=== PATIENT | female | born 1960 | race Caucasian/White ===

== ENCOUNTER 2023-08-10 09:24 | Outpatient (CLI) | payer BC, SELFPAY ==
--- NOTE | ~2023-08-10 | XR_ITS ---
AP and lateral views of the right hip Clinical history: Pain Findings: No acute fracture or dislocation is seen. Osseous alignment is anatomic. Right hip joint sp selam is preserved. Soft tissues are unremarkable. Impression: No significant abnormality is seen. Reviewed, dictated and finalized at location . Impression: No significant abnormality is seen.
== END 2023-08-10 09:25 | disposition home or self-care (01) ==
LOC: CHSIMG 09:35
PROVIDERS: PCP Family Medicine; Visit Provider Family Medicine
DX: M25.551 Pain in right hip (principal)
CPT/HCPCS: 73502

== ENCOUNTER 2023-09-15 13:24 | Outpatient (CLI) | payer BC, SELFPAY ==
--- NOTE | ~2023-09-15 | XR_ITS ---
EXAMINATION: XR lg joint inject/asp w image DATE: 09/15/2023 14:08 INDICATION: Right hip arthritis. TECHNIQUE: A time-out was performed to verify the patient's name, date of , and procedure to b e performed. The procedure including the risks, benefits, and alternatives was discussed with the pat ient. Risks discussed included bleeding and infection. The patient understood the risks and agreed to proceed. The skin overlying the right hip joint was prepped and draped in usual sterile fashion. A nesthetic was administered with 1% lidocaine subcutaneously. A 22 G needle was advanced under fluoro scopic guidance into the joint. Subsequently, injectate consisting of 2 mL 0.5% bupivacaine and 1 m L 80 mg/mL Depo-Medrol was instilled. The needle was removed and the entry site was cleaned and dres sed. There were no immediate complications. Fluoroscopy exposure time was 0.1 minutes. The total num zoë of images was 1. FINDINGS: Real-time fluoroscopy demonstrates the needle in the right hip joint. Patient's pain prior to procedure:3/10. Patient's pain following the procedure: 0/10. IMPRESSION: 1. Fluoroscopy guided right hip joint injection of local anesthetic and steroid with decrease in the patient's presenting pain. Reviewed, dictated and finalized at location A.
== END 2023-09-15 13:25 | disposition home or self-care (01) ==
PROVIDERS: PCP Family Medicine; Visit Provider Orthopaedic Surgery
DX: M16.11 Unilateral primary osteoarthritis, right hip (principal)
CPT/HCPCS: 20610; 77002; J1010

== ENCOUNTER 2023-10-12 08:28 | Outpatient (CLI) | payer BC, SELFPAY ==
[2023-10-12 08:54] LABS: Basophils Absolute Auto 0.04 K/mm3 (0.00-0.10); Basophils Percent Auto 0.6 % (0.0-1.0); Eosinophils Absolute Auto 0.29 K/mm3 (0.02-0.50); Eosinophils Percent Auto 4.6 % (1.0-6.0); Hematocrit 34.6 % (35.0-42.0); Hemoglobin 11.7 g/dL (11.7-13.8); Immature Granulocyte Absolute 0.05 K/mm3 (0.00-0.00); Immature Granulocyte Percent A 0.8 % (0.0-0.0); Lymphocytes Absolute Auto 1.87 K/mm3 (1.10-4.50); Lymphocytes Percent Auto 29.5 % (18.0-42.0); Mean Corpuscular HGB Conc 33.8 g/dL (32-36); Mean Corpuscular Hemoglobin 33.3 pg (27.0-31.0); Mean Corpuscular Volume 98.6 fL (78.0-102.0); Mean Platelet Volume 8.8 fl (9.2-11.8); Monocytes Absolute Auto 0.58 K/mm3 (0.10-0.90); Monocytes Percent Auto 9.2 % (2.0-11.0); Neutrophils Percent Auto 55.3 % (50.0-70.0); Platelet Count Result 307 K/mm3 (150-420); Red Blood Count 3.51 M/mm3 (4.20-5.40); Red Cell Distribution Width 12.5 % (11.6-14.4); White Blood Count 6.3 K/mm3 (4.8-10.8)
[2023-10-12 09:06] LABS: Hemoglobin A1C < 4.4 % (<5.7)
[2023-10-12 09:39] LABS: Alanine Aminotransferase 23 U/L (14-59); Alkaline Phosphatase 47 U/L (46-116); Anion Gap 10 mmol/L (4-12); Aspartate Amino Transferase 17 U/L (15-37); Bilirubin,Total 0.7 mg/dL (0.00-1.00); Blood Urea Nitrogen 14 mg/dL (7-18); Calcium 9.1 mg/dL (8.5-10.1); Carbon Dioxide 29 mmol/L (21-32); Chloride 96 mmol/L (98-108); Cholesterol 272 mg/dL (0-200); Estimated Glomerular Filt Rate > 60; Folic Acid 12.7 ng/mL (8.6->20); Glucose 92 mg/dL (70-99); HDL Direct 113 mg/dL (40-60); LDL Cholesterol Calculated 149 mg/dL (<130); Osmolality Calculated 280 mOsm/kg (285-295); Potassium 4.4 mmol/L (3.5-5.1); Sodium 135 mmol/L (136-145); Thyroid Stimulating Hormone 1.45 uIU/mL (0.36-3.74); Total Protein 7.5 g/dL (6.4-8.2); Triglycerides 49 mg/dL (0-150); Vitamin B12 291 pg/mL (193-986)
== END 2023-10-12 08:29 | disposition home or self-care (01) ==
LOC: CHSLAB 08:33
PROVIDERS: PCP Family Medicine
DX: E66.3 Overweight (principal); E56.9 Vitamin deficiency, unspecified; E34.9 Endocrine disorder, unspecified
CPT/HCPCS: 36415; 80053; 80061; 82607; 82746; 83036; 84443; 85025

== ENCOUNTER 2024-01-05 08:11 | Outpatient (CLI) | payer BC, SELFPAY ==
--- NOTE | ~2024-01-05 | MM_ITS ---
EXAMINATION: MM screening mahad BI w leticia HISTORY: Screening TECHNIQUE: Craniocaudal and mediolateral oblique 3-D tomosynthesis images were obtained and synthetic 2-D images were generated. CAD analysis was submitted and interpreted. COMPARISON: No prior mammogram is available for comparison at this institution. BREAST PARENCHYMAL COMPOSITION: Dense: The breasts are extremely dense, which lowers the sensitivity of mammography. FINDINGS: There is a focal asymmetry medially in the right breast on CC view and centrally in the lef t breast on CC view. There are benign calcifications. There are no suspicious areas of architectural distortion. IMPRESSION: 1. Bilateral breast asymmetries. 2. Additional mammographic views and possible breast ultrasound are recommended. BI-RADS Category 0: Incomplete: Needs additional imaging evaluation. Reviewed, dictated and finalized at location B. IMPRESSION: 1. Bilateral breast asymmetries. 2. Additional mammographic views and possible breast ultrasound are recommended . BI-RADS Category 0: Incomplete: Needs additional imaging evaluation.
== END 2024-01-05 08:12 | disposition home or self-care (01) ==
LOC: CHSIMG 08:12
PROVIDERS: PCP Family Medicine; Visit Provider Family Medicine
DX: Z12.31 Encounter for screening mammogram for malignant neoplasm of breast (principal); R92.8 Other abnormal and inconclusive findings on diagnostic imaging of breast
CPT/HCPCS: 77063; 77067

== ENCOUNTER 2024-01-12 08:37 | Outpatient (CLI) | payer BC, SELFPAY ==
--- NOTE | ~2024-01-12 | MMUS_ITS ---
EXAMINATION: MM diagnostic mahad BI w leticia, US breast BI complete HISTORY: Follow-up breast asymmetries TECHNIQUE: Additional 3-D tomosynthesis images of the breasts were performed and synthetic 2-D images were generated. CAD analysis was submitted and interpreted. High resolution bilateral complete breas t ultrasound was performed. COMPARISON: 01/05/2024 BREAST PARENCHYMAL COMPOSITION: Dense: The breasts are extremely dense, which lowers the sensitivity of mammography. FINDINGS: MAMMOGRAPHIC FINDINGS: There are no suspicious masses, calcifications or architectural distortion with spot compression or m ediolateral views. ULTRASOUND: Complete US of all 4 quadrants of the breast/s and retroareolar region was reviewed. Normal bilateral breast ultrasound without discrete solid or cystic mass. IMPRESSION: 1. No evidence for malignancy in either breast. 2. Routine yearly screening mammogram and regular clinical breast examination are recommended. BI-RADS CATEGORY 1 - NEGATIVE Reviewed, dictated and finalized at location B. IMPRESSION: 1. No evidence for malignancy in either breast. 2. Routine yearly screening mammogram and regular clinical breast examination a re recommended. BI-RADS CATEGORY 1 - NEGATIVE
== END 2024-01-12 08:38 | disposition home or self-care (01) ==
LOC: CHSIMG 08:47
PROVIDERS: PCP Family Medicine; Visit Provider Family Medicine
DX: R92.8 Other abnormal and inconclusive findings on diagnostic imaging of breast (principal)
CPT/HCPCS: 76641; 77062; 77066; G0279

== ENCOUNTER 2024-02-13 07:41 | Outpatient (CLI) | payer BC, SELFPAY ==
[2024-02-13 07:54] LABS: Basophils Absolute Auto 0.04 K/mm3 (0.00-0.10); Basophils Percent Auto 0.7 % (0.0-1.0); Eosinophils Absolute Auto 0.16 K/mm3 (0.02-0.50); Eosinophils Percent Auto 2.8 % (1.0-6.0); Hematocrit 34.3 % (35.0-42.0); Hemoglobin 11.9 g/dL (11.7-13.8); Immature Granulocyte Absolute 0.04 K/mm3 (0.00-0.00); Immature Granulocyte Percent A 0.7 % (0.0-0.0); Lymphocytes Absolute Auto 1.74 K/mm3 (1.10-4.50); Lymphocytes Percent Auto 30.7 % (18.0-42.0); Mean Corpuscular HGB Conc 34.7 g/dL (32-36); Mean Corpuscular Hemoglobin 33.1 pg (27.0-31.0); Mean Corpuscular Volume 95.5 fL (78.0-102.0); Mean Platelet Volume 8.6 fl (9.2-11.8); Monocytes Absolute Auto 0.49 K/mm3 (0.10-0.90); Monocytes Percent Auto 8.7 % (2.0-11.0); Neutrophils Absolute Auto 3.19 K/mm3 (1.70-7.20); Neutrophils Percent Auto 56.4 % (50.0-70.0); Platelet Count Result 309 K/mm3 (150-420); Red Blood Count 3.59 M/mm3 (4.20-5.40); Red Cell Distribution Width 11.7 % (11.6-14.4); White Blood Count 5.7 K/mm3 (4.8-10.8)
[2024-02-13 08:32] LABS: Creatinine Urine 28.56 mg/dL (40-278); MALB Creatinine Ratio 45.5 mg/g (0-30); Microalbumin Urine Random < 13.0 mg/L
[2024-02-13 08:38] LABS: Alanine Aminotransferase 82 U/L (14-59); Albumin Level 4.1 g/dL (3.4-5.0); Alkaline Phosphatase 52 U/L (46-116); Anion Gap 10 mmol/L (4-12); Aspartate Amino Transferase 34 U/L (15-37); Bilirubin,Total 0.7 mg/dL (0.00-1.00); Blood Urea Nitrogen 16 mg/dL (7-18); Calcium 9.5 mg/dL (8.5-10.1); Carbon Dioxide 29 mmol/L (21-32); Chloride 92 mmol/L (98-108); Cholesterol 251 mg/dL (0-200); Estimated Glomerular Filt Rate > 60; Glucose 97 mg/dL (70-99); HDL Direct 101 mg/dL (40-60); LDL Cholesterol Calculated 138 mg/dL (<130); Osmolality Calculated 273 mOsm/kg (285-295); Potassium 4.5 mmol/L (3.5-5.1); Sodium 131 mmol/L (136-145); Thyroid Stimulating Hormone 1.77 uIU/mL (0.36-3.74); Total Protein 7.5 g/dL (6.4-8.2); Triglycerides 62 mg/dL (0-150)
== END 2024-02-13 07:42 | disposition home or self-care (01) ==
LOC: CHSLAB 07:43
PROVIDERS: PCP Family Medicine; Visit Provider Family Medicine
DX: I10 Essential (primary) hypertension (principal)
CPT/HCPCS: 36415; 80053; 80061; 82043; 84443; 85025

== ENCOUNTER 2024-03-20 13:23 | Outpatient (CLI) | payer BC, SELFPAY ==
--- NOTE | ~2024-03-20 | XR_ITS ---
EXAMINATION: XR lg joint inject/aspiration DATE: 03/20/2024 14:00 INDICATION: Right hip arthritis. TECHNIQUE: A time-out was performed to verify the patient's name, date of , and procedure to b e performed. The procedure including the risks, benefits, and alternatives was discussed with the pat ient. Risks discussed included bleeding and infection. The patient understood the risks and agreed to proceed. The skin overlying the right hip joint was prepped and draped in usual sterile fashion. A nesthetic was administered with 1% lidocaine subcutaneously. A 22 G needle was advanced under fluoro scopic guidance into the joint. Subsequently, injectate consisting of 2 mL 0.5% bupivacaine and 1 mL 80 mg/mL Depo-Medrol was instilled. The needle was removed and the entry site was cleaned and dress ed. There were no immediate complications. Fluoroscopy exposure time was 0.0 minutes. The total numb er of images was 1. FINDINGS: Real-time fluoroscopy demonstrates the needle in the right hip joint. Patient's pain prior to procedure:10/15. Patient's pain following the procedure: 05/17. IMPRESSION: 1. Fluoroscopy guided right hip joint injection of local anesthetic and steroid with decrease in the patient's presenting pain. Reviewed, dictated and finalized at location A. MICIST
== END 2024-03-20 13:24 | disposition home or self-care (01) ==
PROVIDERS: PCP Family Medicine; Visit Provider Nurse Practitioner Family
DX: M16.11 Unilateral primary osteoarthritis, right hip (principal)
CPT/HCPCS: 20610; J1010

== ENCOUNTER 2024-08-26 07:56 | Outpatient (CLI) | payer BC, SELFPAY ==
--- OUTSIDE RECORDS SUMMARY | 2024-08-26 08:23 | XMS_ITS | Encounter Summary ---
Author Organization [facility] Address 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
--- OUTSIDE RECORDS SUMMARY | 2024-08-26 08:23 | XMS_ITS | Clinical Summary ---
Author Organization [facility] Address [address] [place] [address] Care Team Providers Care Overedge Sewer Name Role Phone Unavailable Primary Care Provider Unavailabl e Allergies No known active allergies Medications metronidazole (FLAGYL) 500 mg Oral tablet Take 1 Tab by mouth 2 times daily. 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 Gender Identity Not on file Sexual Orientation Not on file Last Filed Vital Signs Vital Sign Reading Time Taken Comments Blood Pressure 114/66 06/24/2009 11:44 AM CORRECTIVE AND MANUAL ARTS THERAPIST Pulse - - Temperature - - Respiratory Rate - - Oxygen Saturation - - Inhaled Oxygen Concentration - - Weight 59 kg (130 lb) 06/24/2009 11:44 AM CORRECTIVE AND MANUAL ARTS THERAPIST Height 157.5 cm (5' 2 ) 06/24/2009 11:44 AM CORRECTIVE AND MANUAL ARTS THERAPIST Body Mass Index 23.78 06/24/2009 11:44 AM CORRECTIVE AND MANUAL ARTS THERAPIST Plan of Treatment Health Maintenance Due Date Last Done Comments DTAP/TDAP/TD VACCINES (1 - Tdap) 1977 PNEUMOCOCCAL VACCINE 50+ YEA RS (1 of 2 - PCV) 1977 COLORECTAL SCREENING 2003 Colorectal Cancer Screening 2003 FIT-DNA Q 3 years 2003 FIT/FOBT Q 1 year 2003 Flex Sig/CT Colonography Q 5 years 2003 ZOSTER VACCINE (1 of 2) 2008 BREAST CANCER SCREENING 05/24/2013 05/24/2012, 06/24 OSTEOPOROSIS SCREENING 2023 INFLUENZA VACCINE (#1) 2023 RSV VACCINE (60+ or ) (1 - 1-dose 75+ series) 2033 Procedures Procedure Name Priority Date/Time Associated Diagnosis Comments MAMMO SCREEN BILAT W OR WO CAD Routine 05/24/2012 from Last 3 Months or Most Recently Relevant to Health Maintenance Results * MAMMO DIGITAL SCREEN BILAT (05/24/2012) Anatomical Region Laterality Modality Breast Bilateral Other us Omari Galindo MD MAMMO ORDERABLES Edited from Last 3 Months or Most Recently Relevant to Health Maintenance Insurance [employer] [facility] ACC[facility] Advance Directives For more information, please contact: [phone] Documents on File Type Date Recorded Patient Branch Specialist Expl anation Advance Directive POA 04/25/2008 Advance Directive Living Will 04/25/2008
--- OUTSIDE RECORDS SUMMARY | 2024-08-26 08:23 | XMS_ITS | Referral Summary ---
Author Organization [facility] Address [address] [facility] [address] [place] [address] Phone Care Team Providers Care Stock Clerk Name Role Phone Martha Suero MD Unavailable Martha Suero MD Unavailable Domingo Calixto MD Primary Care Provide r Encounters Date Type Department Care Team Description 06/03/2024 9:28 AM CHANNEL WORKER - 06/03/2024 11:59 PM CHANNEL WORKER Hospital Encounter [address] [address] Localized osteoporosis without current pathological fracture; Vitamin D deficiency Discharge Disposition: Discharge to home or self care 06/03/2024 9:30 AM CHANNEL WORKER Lab [facility] Outpatient Lab at [address] [phone] Hypertension, essential (Primary Dx); Mixed hyperlipidemia 06/03/2024 9:00 AM CHANNEL WORKER Office Visit [facility] Diabetes and Endocrinology [address] [place] [id number] Vidal Silva MD Localized osteoporosis without current pathological fracture (Primary Dx); Hypertension, essential; Vitamin D deficiency from Last 3 Months Allergies No known active allergies Medications lisinopriL (PRINIVIL,ZESTR IL) 10 mg tablet Take 1 tablet (10 mg total) by mouth daily 90 tablet 3 021 Active Prolia 60 mg/mL syringeIndicati ons:Localized osteoporosis without current pathological fracture Inject 1ml SUBCUTANEOUSLY EVERY 6 MONTHS 1 mL 1 025 Active denosumab (PROLIA) 60 mg/mL syringeIndicati ons:Localized osteoporosis without current pathological fracture Inject 1 mL (60 mg total) under the skin once for 1 dose 1 mL 025 2024 Discontinued Active Problems Problem Noted Date Diagnosed Date Normocytic anemia 09/27/2020 Assessment & Plan (02/09/2021 4:02 PM CDT): Iron studies, vitamin B12 and folate were all unremarkable 09/30/2020. Last colonoscopy was 10/04/2018 unremarkable. Continue to hold supplements. Her complete blood count shows continued improvement of her anemia. I would recommend repeating this again in 6 months. I reviewed warning signs and symptoms of anemia and when to contact the clinic sooner Assessment & Plan (11/02/2020 3:15 PM CDT): Iron studies, vitamin B12 and folate were all unremarkable 09/30/2020. Last colonoscopy was 10/04/2018 unremarkable. Continue to hold supplements. Repeat CBC in 1 month if continues to downtrend recommend Hematology consultation. I reviewed warning signs and symptoms of anemia and when to contact the clinic sooner Palpitations 08/07/2020 Assessment & Plan (08/07/2020 8:31 AM CDT): EKG and labs as ordered. Reviewed warning signs and symptoms of when to seek care. BMI 23.0-23.9, adult 11/27/2019 Assessment & Plan (02/09/2021 4:02 PM CDT): Patient is a healthy normal BMI. Recommended continuing healthy diet and exercise daily. Assessment & Plan (11/27/2019 12:42 PM CDT): Patient is a healthy normal BMI. Recommended continuing healthy diet and exercise daily. Localized osteoporosis witho ut current pathological fracture 03/06/2019 Assessment & Plan (05/11/2023 10:01 AM CHANNEL WORKER): DEXA requested Continue Prolia Ca and vit D intake discussed Weight bearing exercise Assessment & Plan (04/13/2022 9:49 AM CHANNEL WORKER): Continue Prolia Weight bearing exercise Ca and vit D intake discussed and advised Assessment & Plan (03/31/2021 1:56 PM CHANNEL WORKER): Continue with Prolia Will check PTH and vitamin-D levels will advise on continuing the use of vitamin-D supplementation and calcium Also 24 hour urine collection request Weight-bearing exercise has been advised Assessment & Plan (02/09/2021 4:02 PM CDT): On Prolia every 6 months. Continue regular endocrinology follow-up. Last bone density October 2020 Assessment & Plan (09/24/2020 11:09 AM CDT): Importance of daily weight-bearing exercise was discussed Also adequate calcium and vitamin-D intake Will check vitamin-D levels and adjust dose if necessary I have strongly recommend for the patient to continue on Forteo and to finish 2 year, but she said that she would like to stop it. She just does not like to take I have requested a bone density today and based on results, will advise the patient She definitely wants to stop the Forteo, Prolia will be my next recommendation Assessment & Plan (11/27/2019 12:42 PM CDT): On forteo. Continue regular follow up with endocrinology. Assessment & Plan (09/25/2019 12:19 PM CDT): Continue Forteo, to complete to bethel of 2 years Ca and vit D intake discussed Weight bearing exercise Fall precautions Assessment & Plan (03/06/2019 4:31 PM CDT): Main reason for treatment of osteoporosis is to decrease the risk of fractures. Daily adequate intake of calcium ( 1200 mg of elemental calcium , in 2 divided doses ) And vitamin D ( 800-1000 IU of vitamin D3 ) is recommended Daily weight bearing exercise, including walking, some weight lifting and stretching is recommended. Avoid falls, by cleaning any clutter at home, including loose rugs I explained to the patient that due to her relatively young age in the very low T-score, I will order labs to rule out secondary cause of osteoporosis. I would probably probably recommend an anabolic agent e.g. Forteo which will help rebuilding some bone Constipation 09/25/2018 Assessment & Plan (11/27/2019 12:40 PM CDT): Recommend increasing fiber in diet. If continues or worsens please follow up with GI. Assessment & Plan (12/04/2018 2:26 PM CDT): The patient's colonoscopy on 10/04/2018 demonstrated only mild melanosis. I am recommending continued use of Linzess 145 micro g q.a.m.. The side effects of the medication were discussed with the patient. The patient was told that sometimes it may take several weeks to reach a s teady state and know exactly how the medication is going to work. A TSH will be checked. Assessment & Plan (09/25/2018 7:40 AM CDT): -Discussed increasing fiber in diet including eating more fruits and vegetables. -Peaches, pears, prunes, and plums are all great fruits to help with constipation. -Encouraged exercise and getting a full 8 glasses of water per day. -RTC if constipation worsens, does not improve, or patient has increase in abdominal pain. Recommend MiraLax daily for constipation if worsens or fails to improve would consider Linzess. Annual physical exam 09/19/2018 Overview (09/19/2018): Added automatically from request for surgery [id number] Assessment & Plan (02/09/2021 4:01 PM CDT): -Discussed recommendations for exercise at least 30 minutes moderate to vigorous exercise most days of the week. (minimum 150 minutes weekly) -Discussed MyPlate recommendations and increasing fruits and vegetables. -Cancer screening: recommended colon cancer screening- due 2028; cervical cancer screening- last pap 2018, due 2021 per [employer] recommendations; annual mammogram and monthly self breast exam encouraged. -Immunizations: Up-to-date. She will receive her flu vaccine at work. -Continue routine dental and vision care. Assessment & Plan (11/27/2019 12:41 PM CDT): -Discussed recommendations for exercise at least 30 minutes moderate to vigorous exercise most days of the week. (minimum 150 minutes weekly) -Discussed MyPlate recommendations and increasing fruits and vegetables. -Cancer screening: recommended colon cancer screening- due 2028; cervical cancer screening- last pap 2018, due 2021 per [employer] recommendations; annual mammogram and monthly self breast exam encouraged. -Immunizations: recommend Shingrix vaccine, yearly influenza vaccines -Continue routine dental and vision care. -Labs ordered today: Screen for diabetes mellitus: CMP Screen for lipid disorders: Lipid profile Screen for venereal disease:declined Assessment & Plan (12/04/2018 2:26 PM CDT): Screening colonoscopy is recommended for approximately September 2028. Mixed hyperlipidemia 09/06/2018 Overview (09/06/2018): 08/31/2018 ASCVD risk score is 5.4% lifestyle recommendations for 6 month trial repeat in February 2019 if not improved would add statin Assessment & Plan (02/09/2021 4:01 PM CDT): Lipid abnormalities are stable. Lipids will be reassessed in 6 months. Assessment & Plan (08/07/2020 8:31 AM CDT): Lipid abnormalities are going to be assessed today. Nutritional counseling was provided. Lipids will be reassessed in 6 months. Assessment & Plan (11/27/2019 12:40 PM CDT): Lipid abnormalities are going to be assessed today. Nutritional counseling was provided. Lipids will be reassessed in 6 months. Assessment & Plan (03/28/2019 8:13 AM CHANNEL WORKER): Lipid abnormalities are going to be assessed today. Nutritional counseling was provided. Lipids will be reassessed in 6 months. Assessment & Plan (09/25/2018 7:41 AM CDT): Lipid abnormalities are newly identified. Nutritional counseling was provided. Lipids will be reassessed in 6 months. Hypertension, essential 08/31/2018 Assessment & Plan (02/09/2021 4:00 PM CDT): Hypertension is improving with treatment. Continue current treatment regimen. Dietary sodium restriction. Regular aerobic exercise. Continue current medications. Continue lisinopril 10 mg daily Blood pressure will be reassessed at the next regular appointment. Assessment & Plan (11/02/2020 3:14 PM CDT): Hypertension is improving with treatment. Continue current treatment regimen. Dietary sodium restriction. Regular aerobic exercise. Continue current medications. Continue lisinopril 10 mg daily Blood pressure will be reassessed at the next regular appointment. Assessment & Plan (08/07/2020 8:31 AM CDT): Hypertension is improving with treatment. Continue current treatment regimen. Dietary sodium restriction. Regular aerobic exercise. Continue current medications. Continue lisinopril 10 mg daily Blood pressure will be reassessed at the next regular appointment. Assessment & Plan (11/27/2019 12:39 PM CDT): Hypertension is improving with treatment. Continue current treatment regimen. Dietary sodium restriction. Regular aerobic exercise. Continue current medications. Continue lisinopril 10 mg daily Blood pressure will be reassessed at the next regular appointment. Assessment & Plan (03/28/2019 8:13 AM CHANNEL WORKER): Hypertension is improving with treatment. Continue current treatment regimen. Dietary sodium restriction. Regular aerobic exercise. Continue current medications. Continue lisinopril 10 mg daily Blood pressure will be reassessed at the next regular appointment. Assessment & Plan (09/25/2018 7:41 AM CDT): Hypertension is improving with treatment. Continue current treatment regimen. Dietary sodium restriction. Regular aerobic exercise. Continue current medications. Continue lisinopril 10 mg daily Blood pressure will be reassessed at the next regular appointment. Assessment & Plan (08/31/2018 3:49 PM CDT): Hypertension is newly identified. Continue current treatment regimen. Dietary sodium restriction. Regular aerobic exercise. Ambulatory blood pressure monitoring. Recommended dash diet. See patient instruction. Reviewed side effects of lisinopril 10 mg daily Blood pressure will be reassessed in 4 weeks. Immunizations Immunization Administration Dates Next Due Influenza, Unspecified 02/05/2019,02/05/2018 Pfizer SARS-CoV-2 Monovalent Vaccination (12+ Yrs) PURPLE 05/15/2020,04/24/2020 Tdap 03/28/2019 ZOSTER Recombinant 12/04/2019 Social History Tobacco Use Types Packs/Day Years Used Date Smoking Tobacco: Former Cigarettes 0.5 29 1 990 - 12/06/2017 Vaping Smokeless Tobacco: Never Tobacco Cessation:Counseling Given: Not Answered Alcohol Use Standard Drinks/Week Comments Yes 7 (1 standard drink = 0.6 oz pur e alcohol) AUDIT-C Answer Date Recorded Q1: How often do you have a drink containing alcohol? 4 or more times a week 02/09/2021 Q2: How many drinks containi ng alcohol do you have on a typical day when you are drinking? 1 or 2 Q3: How often do you have si x or more drinks on one occasion? 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 Not on file Not on file Last Filed Vital Signs Vital Sign Reading Time Taken Comments Blood Pressure 120/72 06/03/2024 8:48 AM CHANNEL WORKER Pulse 68 06/03/2024 8:48 AM CHANNEL WORKER Temperature 36.9 C (98.4 F) 02/09/2021 10:52 AM CDT Respiratory Rate 15 06/03/2024 8:48 AM CHANNEL WORKER Oxygen Saturation 98% 10/04/2018 9:47 AM CDT Inhaled Oxygen Concentration - - Weight 64 kg (141 lb) 06/03/2024 8:48 AM CHANNEL WORKER Height 157.5 cm (5' 2 ) 06/03/2024 8:48 AM CHANNEL WORKER Body Mass Index 25.79 06/03/2024 8:48 AM CHANNEL WORKER Plan of Treatment Not on file Procedures Procedure Name Priority Date/Time Associated Diagnosis Comments EGFR Routine 06/03/2024 9:28 AM CHANNEL WORKER Localized osteoporosis without current pathological fracture THYROID FUNCTION CASCADE Routine 06/03/2024 9:28 AM CHANNEL WORKER Localized osteoporosis without current pathological fracture VITAMIN D 25 HYDROXY Routine 06/03/2024 9:28 AM CHANNEL WORKER Vitamin D deficiency PTH Routine 06/03/2024 9:28 AM CHANNEL WORKER Localized osteoporosis without current pathological fracture COMPREHENSIVE METABOLIC PANEL Routine 06/03/2024 9:28 AM CHANNEL WORKER Localized osteoporosis without current pathological fracture DEXA AXIAL SKELETON BONE DENSITY 1 OR MORE SITES Schedule Routine, Read Routine (OP Routine) 07/27/2023 10:22 AM CDT Localized osteoporosis without current pathological fracture SCREENING MAMMOGRAM BILATERAL W JEROME Schedule Routine, Read Routine (OP Routine) 08/23/2022 7:27 AM CDT Screening mammogram, encounter for COLONOSCOPY 10/04/2018 8:33 AM CDT HEPATITIS C ANTIBODY Routine 08/31/2018 8:49 AM CDT Encounter for hepatitis C screening test for low risk patient THINPREP PAP WITH HPV Routine 08/06/2018 from Last 3 Months or Most Recently Relevant to Health Maintenance Results * eGFR (06/03/2024 9:28 AM CHANNEL WORKER) eGFR >90 >=60 mL/min/1. 73 m2 Comment: Interpretive Data Reference Interval Normal >/= 90 mL/min/1.73m2 Mildly decreased* 60 - 89 mL/min/1.73m2 Mildly to moderately decreased 45 - 59 mL/min/1.73m2 Moderately to severely decreased 30 - 44 mL/min/1.73m2 Severely decreased 15 - 29 mL/min/1.73m2 Kidney Failure < 15 mL/min/1.73m2 *Relative to young adult level Estimated glomerular filtration rate is determined by the 2020 CKD-EPI equation recommended by the National Kidney Foundation (A Unifying Approach to GFR Estimation: Recommendations of the NKF-ASK Task Force on Reassessing the Inclusion of Race in Diagnosing Kidney Disease, JASN 2020). The CKD-EPI equation should not be used for patients with unstable renal function and has not been validated in children and those over 70. Current interpretive data was last reviewed 2021. Blood 06/03/2024 9:28 AM CHANNEL WORKER 06/03/2024 2:47 PM CHANNEL WORKER us Vidal Bridges MD LAB BLOOD ORDERABLE S Final Result Performing Organization Address City/[facility]/ZIP Co de Phone Number KALEE [phone] [facility] [employer] [address] * Thyroid Function [place] (06/03/2024 9:28 AM CHANNEL WORKER) TSH 0.88 0.30 - 4.20 mcIUnit/mL Blood 06/03/2024 9:28 AM CHANNEL WORKER 06/03/2024 2:47 PM CHANNEL WORKER us Vidal Bridges MD LAB BLOOD ORDERABLE S Final Result Performing Organization Address [facility] Co de Phone Number KALEE [phone] [facility] [place] [address] * Vitamin D 25 hydroxy (06/03/2024 9:28 AM CHANNEL WORKER) Vitamin D 25-OH 75 30 - 80 ng/mL Blood 06/03/2024 9:28 AM CHANNEL WORKER 06/03/2024 2:47 PM CHANNEL WORKER us Vidal Bridges MD LAB BLOOD ORDERABLE S Final Result Performing Organization Address [facility] Co de Phone Number KALEE [phone] [address] Department [place] [address] * PTH (06/03/2024 9:28 AM CHANNEL WORKER) PTH 36 15 - 65 pg/mL Blood 06/03/2024 9:28 AM CHANNEL WORKER 06/03/2024 2:47 PM CHANNEL WORKER Vidal Bridges MD LAB BLOOD ORDERABLE S Final Result [facility] [id number] [address] Department [place] [address] * (ABNORMAL) Comprehensive metabolic panel (06/03/2024 9:28 AM CHANNEL WORKER) Sodium 132(L) 135 - 145 mmol/L Potassium, pl 4.5 3.3 - 4.9 mmol/L [facility] Chloride 95(L) 97 - 110 mmol/L [facility] CO2 26 22 - 32 mmol/L [facility] Anion gap 11 2 - 15 mmol/L [facility] BUN 10 6 - 25 mg/dL [facility] Creatinine 0.70 0.60 - 1.10 mg/dL [facility] Glucose 102 70 - 199 mg/dL [facility] Comment: Interpretive Data Fasting glucose >/= 126 mg/dl is diagnostic for diabetes. Fasting is defined as no caloric intake for at least 8 hours. Fasting glucose between 100 mg/dl to 125 mg/dl is diagnostic of prediabetes. In a patient with classic symptoms of hyperglycemia or hyperglycemic crisis, a random glucose >/= 200 mg/dl is diagnostic for diabetes. In the absence of unequivocal hyperglycemia, results should be confirmed by repeat testing. The classification and Diagnosis of Diabetes Diabetes Care 202; 46: S19-S40. Current interpretive data was last revised 2022. Calcium 9.7 8.5 - 10.3 mg/dL [facility] Bilirubin, total 0.3 0.1 - 1.2 mg/dL [facility] Protein, pl 7.6 6.5 - 8.5 g/dL [facility] Albumin 4.5 3.5 - 5.0 g/dL [facility] Alk phos 57 40 - 130 Units/L [facility] ALT 18 7 - 45 Units/L [facility] AST 30 10 - 45 Units/L [facility] Blood 06/03/2024 9:28 AM CHANNEL WORKER 06/03/2024 2:47 PM CHANNEL WORKER us Vidal Bridges MD LAB [place]LOOD [place] [id number] [address] Department [place] [address] * Dexa Axial Skeleton Bone Density 1 or 2 Site (07/27/2023 10:22 AM CDT) Anatomical Region Laterality Modality Body N/A Other 07/27/2023 10:5 4 AM CDT Impressions 07/27/2023 10:54 AM CDT Osteopenia. Consider follow-up bone densitometry evaluation in 2-3 years. Electronically signed by: Trung Florian II, D.O. Narrative 07/27/2023 10:54 AM CDT Examination: Bone densitometry of the lumbar spine and the left hip History: Osteoporosis screening. Comparison: 10/13/2020. Findings: The bone densitometry of the L1-L4 region, the left femoral neck and the total left hip was calculated using dual-energy x-ray absorptiometry. Menopausal status: Post menopausal Summary: Bone mineral density (BMD) of the lumbar spine (L1-4): T-score -0.4; previously -1.1 Bone mineral density (BMD) of the left femoral neck: T-score -2.4; previously -2.5 Bone mineral density (BMD) of the total left hip: T-score -1.7; previously -2.0 Procedure Note Trung Florian II, - 07/27/2023 Examination: Bone densitometry of the lumbar spine and the left hip History: Osteoporosis screening. Comparison: 10/13/2020. Findings: The bone densitometry of the L1-L4 region, the left femoral neck and the total left hip was calculated using dual-energy x-ray absorptiometry. Menopausal status: Post menopausal Summary: Bone mineral density (BMD) of the lumbar spine (L1-4): T-score -0.4; previously -1.1 Bone mineral density (BMD) of the left femoral neck: T-score -2.4; previously -2.5 Bone mineral density (BMD) of the total left hip: T-score -1.7; previously -2.0 IMPRESSION: Osteopenia. Consider follow-up bone densitometry evaluation in 2-3 years. Electronically signed by: Trung Florian II, D.O. Jann Neumann MD IMG DXA PROCEDURES Final Result * Screening Mammogram Bilateral W [place] (08/23/2022 7:27 AM CDT) Anatomical Region Laterality Modality Breast Bilateral Mammography 08/23/2022 8:36 AM CDT Impressions 08/23/2022 8:36 AM CDT No evidence of malignancy in either breast. FINAL ASSESSMENT: BI-RADS Category 1: Negative. RECOMMENDATION: Recommend return for annual screening mammogram in 12 months. Electronically signed by: Nelly Reddy M.D. Narrative 08/23/2022 8:36 AM CDT EXAMINATION: BILATERAL SCREENING MAMMOGRAM COMPARISON: Multiple prior studies, most recently 07/08/2021 and dating back to 06/24/2009. TECHNIQUE: Full-field 2D and digital breast tomosynthesis (DBT) images were obtained. CAD was utilized. BREAST PARENCHYMAL COMPOSITION: The breasts are extremely dense, which lowers the sensitivity of mammography. FINDINGS: There is no suspicious mass, calcification, or distortion in either breast. There has been no significant interval change from the prior study. Self Screening Mammogram IMG MAMMO PROCEDURES Fi nal Result * COLONOSCOPY (10/04/2018 8:33 AM CDT) Anatomical Region Laterality Modality Other Narrative Procedure Note Del Kendrick MD - 10/04/2018 8:33 AM CDT [facility] Endoscopy Lab Patient Name: Cleo Whitley Procedure Date: 10/04/2018 8:33 AM Date of : 1960 Admit Type: Outpatient Age: 58 Gender: Female Note Status: Finalized Attending MD: Del Kendrick M.D. Procedure Date: 10/04/2018 Procedure: Colonoscopy Indications: Screening for colorectal malignant neoplasm; the patient also has constipation. She is planning on initiating Metamucil. Providers: Del Kendrick M.D., Dolores Bañuelos CRNA (Anesthesia Staff), Omari Castro RN Referring MD: [place] Medicines: Monitored Anesthesia Care Complications: No immediate complications. Estimated blood loss:None. Estimated Blood Loss: Estimated blood loss: none. Procedure: Pre-Anesthesia Assessment: - Prior to the procedure, a History and Physical was performed, and patient medications and allergieswere reviewed. The patient is competent. The risks and benefits of the procedure and the sedation optionsand risks were discussed with the patient. All questions were answered and informed consent was obtained. Patient identification and proposed procedure were verified by the physician, the nurse and the aircraft de icer installer in the endoscopy suite. Mental Status Examination: alert and oriented. Airway Examination: normal oropharyngeal airway and neck mobility. Respiratory Examination: clear to auscultation. CV Examination: normal. Prophylactic Antibiotics: The patient does not require prophylactic antibiotics. Prior Anticoagulants: The patient has taken noprevious anticoagulant or antiplatelet agents. ASA Grade Assessment: II - A patient with mild systemicdisease. After reviewing the risks and benefits, the patientwas deemed in satisfactory condition to undergo the procedure. The anesthesia plan was to use monitored anesthesia care (MAC). Immediately prior to administration of medications, the patient was re-assessed for adequacy to receive sedatives. The heart rate, respiratory rate, oxygen saturations,blood pressure, adequacy of pulmonary ventilation, and response to care were monitored throughout the procedure. The physical status of the patient was re-assessed after the procedure. - The risks and benefits of the procedure and the sedation options and risks were discussed with the patient. All questions were answered and informed consent was obtained. After I obtained informed consent, the scope waspassed under direct vision. Throughout the procedure, the patient's blood pressure, pulse, and oxygensaturations were monitored continuously. The scope was passedunder direct vision. The Colonoscope was introducedthrough the anus and advanced to the the cecum, identifiedby appendiceal orifice and ileocecal valve. The colonoscopy was extremely difficult due to atortuous colon. The patient tolerated the procedure well. The quality of the bowel preparation was good. The bowel preparation used was SUPREP. Findings: A diffuse area of mild melanosis was found in the entire colon. Multiple diverticula were found in the sigmoid colon, descendingcolon and transverse colon. Impression: - Melanosis in the colon. - Diverticulosis in the sigmoid colon, in the descending colon and in the transverse colon. - No specimens collected. Recommendation: - Repeat colonoscopy in 10 years for screeningpurposes. - Use fiber, for example Citrucel, Fibercon, Konsylor Metamucil. - Telephone my office if symptomatic PRN. There are other medications to help constipation if Metamucilis unsuccessful. Procedure Code(s): --- Professional --- 69068, Colonoscopy, flexible; diagnostic, including collection of specimen(s) by brushing or washing,when performed (separate procedure) Diagnosis Code(s): --- Professional --- Z12.11, Encounter for screening for malignantneoplasm of colon K63.89, Other specified diseases of intestine K57.30, Diverticulosis of large intestine without perforation or abscess without bleeding CPT copyright 2017 [employer]. All rights reserved. The codes documented in this report are preliminary and upon area development manager reviewmay be revised to meet current compliance requirements. Dr. Del Kendrick MD Del Kendrick M.D. 10/04/2018 9:40:01 AM This report has been electronically signed by the physician. Number of Addenda: 0 Note Initiated On: 10/04/2018 8:33 AM Del Kendrick MD ENDOSCOPY PROCEDURES Final R esult * Hepatitis C antibody (08/31/2018 8:49 AM CDT) Hep C Ab Negative Negative [facility] Blood specimen (specimen) 08/31/2018 8:49 AM CDT 08/31/2018 8:49 AM CDT Narrative [facility] - 08/31/2018 9:37 AM CDT Anabel Gonzalez NP LAB MICROBIOLOGY - GENERAL O RDERABLES Final Result [facility] [address] Department [place] [address] * ThinPrep Pap with HPV (08/06/2018) 08/06/2018 Historical Provider LAB CYTOLOGY ORDERABLES F inal Result from Last 3 Months or Most Recently Relevant to Health Maintenance Insurance [facility] [employer] OOS ANTHEM ACCESS ANTHEM ACCESS Member Subscriber Plan / Payer ( fective 2019-Present) Name:Cleo Whitley Relation to Subscriber:Spouse Name:AMINTA WHITLEY Date of :1964 (Home) Address: [address] [place], [place] [address] [address] Payer ID:[id number] (NAIC) Type:BC ALLIANCE Address: [address] [place] [id number] MEDICARE Care Teams Stock Clerk Relationship Specialty Start Date End Date Domingo Calixto MD [address] [place] [address] PCP - General Family Medicine 04/13/22 [place] [address] [address] [address] Consulting Physician Obstetrics and Gynecology 08/06/18 [place] [address] [address] [address] Consulting Physician Obstetrics and Gynecology 08/06/18
--- OUTSIDE RECORDS SUMMARY | 2024-08-26 08:23 | XMS_ITS | Continuity of Care Document ---
Author Organization Software [facility] Address [address] [place] [address] Phone Care Team Providers Care Magneto Specialist Name Role Phone Sae Doyle MD Unavailable Unavailable Advance Directives Directive Yes / No Effective Date File Name No Information Encounters Encounter Description Practice Location Reason(s) For Visit Diagnoses Date Provider Providers Copied on Encounter [facility], [address], [place], [place], [id number], [place] tel:[phone] [facility] No Information Yanira Quevedo. [address] [place], [place], [id number] , [place]. tel:[phone] Family History Family Member Type Diagnosis Age [...]
--- OUTSIDE RECORDS SUMMARY | 2024-08-26 08:23 | XMS_ITS | Clinical Summary ---
Author Organization [facility] Address [address] [facility] [facility] [address] [place] [address] Phone Care Team Providers Care Art Preparator Name Role Phone Martha Suero MD Unavailable Martha Suero MD Unavailable Domingo Calixto MD Primary Care Provide r Allergies No known active allergies Medications lisinopriL [...] 03/06/2019 Assessment & Plan (05/11/2023 10:01 AM PIPE FITTER SUPERVISOR MAINTENANCE): DEXA requested Continue Prolia Ca and vit D intake discussed Weight bearing exercise Assessment & Plan (04/13/2022 9:49 AM PIPE FITTER SUPERVISOR MAINTENANCE): Continue Prolia Weight bearing exercise Ca and vit D intake discussed and advised Assessment & Plan (03/31/2021 1:56 PM PIPE FITTER SUPERVISOR MAINTENANCE): Continue with Prolia Will check PTH and [...] (09/19/2018): Added automatically from request for surgery [id number] Assessment & Plan (02/09/2021 4:01 PM CDT): -Discussed recommendations for exercise at least 30 minutes moderate to vigorous exercise most days of the week. (minimum 150 minutes weekly) -Discussed MyPlate recommendations and increasing fruits and vegetables. -Cancer screening: recommended colon cancer screening- due 2028; cervical cancer screening- last pap 2018, due 2021 per AED TRAINER recommendations; annual mammogram and monthly self breast [...] screening- last pap 2018, due 2021 per AED TRAINER recommendations; annual mammogram and monthly self breast [...] months. Assessment & Plan (03/28/2019 8:13 AM PIPE FITTER SUPERVISOR MAINTENANCE): Lipid abnormalities are going to be assessed [...] appointment. Assessment & Plan (03/28/2019 8:13 AM PIPE FITTER SUPERVISOR MAINTENANCE): Hypertension is improving with treatment. Continue current [...] pressure will be reassessed in 4 weeks. Encounters Date Type Department Care Team Description 06/03/2024 9:30 AM PIPE FITTER SUPERVISOR MAINTENANCE Lab [facility] Outpatient Lab at [address] [phone] Hypertension, essential (Primary Dx); Mixed hyperlipidemia 06/03/2024 9:28 AM PIPE FITTER SUPERVISOR MAINTENANCE - 06/03/2024 11:59 PM PIPE FITTER SUPERVISOR MAINTENANCE Hospital Encounter [address] [address] Localized osteoporosis without current pathological fracture; Vitamin D deficiency Discharge Disposition: Discharge to home or self care 06/03/2024 9:00 AM PIPE FITTER SUPERVISOR MAINTENANCE Office Visit [facility] Diabetes and Endocrinology [address] [place] [phone] Vidal Silva MD Localized osteoporosis without current pathological fracture (Primary Dx); Hypertension, essential; Vitamin D deficiency from Last 3 Months Immunizations Immunization Administration Dates Next Due Influenza, Unspecified 02/05/2019,02/05/2018 Pfizer SARS-CoV-2 Monovalent Vaccination (12+ Yrs) PURPLE 05/15/2020,04/24/2020 Tdap 03/28/2019 ZOSTER Recombinant 12/04/2019 Surgical History Surgery Date Site/Laterality Comments BREAST LUMPECTOMY 05/08/2003 - 05/07/2004 Left Fibroadenoma BREAST EXCISIONAL BIOPSY 05/08/2000 Right negative COLONOSCOPY 05/08/2018 - 05/07/2019 normal Medical History Medical History Date Comments Hypertension Osteopetrosis Family History Medical History Relation Name Comments Hypertension Father Ole Parsons Prostate cancer Father Ole Parsons Suicide Completion Father Ole Parsons Hypertension Mother Kalyn Parsons Pneumonia Mother Kalyn Parsons Lung cancer Paternal Grandfather Stomach cancer Paternal Grandmother Osteoporosis Sister Breast cancer Neg Hx Colon cancer Neg Hx Ovarian cancer Neg Hx Relation Name Status Comments Brother Alive 2 brothers A&W Father Ole Parsons (Age 87) Committed suicide Maternal Grandfather Maternal Grandmother Mother Kalyn Parsons (Age 80) Paternal Grandfather Paternal Grandmother Sister Alive one sister A&W Social History Tobacco Use Types Packs/Day Years [...] on file Legal Sex Female 1:02 AM PIPE FITTER SUPERVISOR MAINTENANCE Gender Identity Not on file Sexual Orientation Not on file 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 Industry 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 Job 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 on file Not on file Not on file Obstetrics History Para Term AB IAB SAB Ectopic Multiple Livin g Live Births 1 0 1 1 0 0 Date Outcome GA Total Labor Labor/2nd/3rd Weight Sex Type Anes PTL Devi A1 A5 Name Clin IAB Last Filed Vital Signs Vital Sign Reading Time Taken Comments Blood Pressure 120/72 06/03/2024 8:48 AM PIPE FITTER SUPERVISOR MAINTENANCE Pulse 68 06/03/2024 8:48 AM PIPE FITTER SUPERVISOR MAINTENANCE Temperature 36.9 C (98.4 F) 02/09/2021 10:52 AM CDT Respiratory Rate 15 06/03/2024 8:48 AM PIPE FITTER SUPERVISOR MAINTENANCE Oxygen Saturation 98% 10/04/2018 9:47 AM CDT Inhaled Oxygen Concentration - - Weight 64 kg (141 lb) 06/03/2024 8:48 AM PIPE FITTER SUPERVISOR MAINTENANCE Height 157.5 cm (5' 2 ) 06/03/2024 8:48 AM PIPE FITTER SUPERVISOR MAINTENANCE Body Mass Index 25.79 06/03/2024 8:48 AM PIPE FITTER SUPERVISOR MAINTENANCE Plan of Treatment Health Maintenance Due Date Last Done Comments Hepatitis B Screening 1976 Pneumococcal vaccine 65+ (1 of 1 - PCV) 2008 Zoster Vaccine (2 of 2) 01/29/2020 12/04/2019 Well Visit 65+ 2023 02/09/2021, 11/06, 08/06/2018 Breast Cancer Screening-Mammogram 08/24/2023 08/23/2022, 07/08/2021, 01/17/2020, Additional history exists Covid-19 Vaccine (3 - 2023-2 5 season) 2024 05/15/2020, 04/24/2020 Influenza Vaccine (#1) 2024 , 02/05/2019, 02/05/2018 Depression Screening 05/11/2024 05/11/2023, 04/13/2022, 03/31/2021, Additional history exists Fall Risk Assessment 05/11/2024 05/11/2023, 02/09/2021, 11/27/2019, Additional history exists Osteoporosis Screening-Bone Density Scan 07/26/2025 07/27/2023, 10/13/2020, 08/15/2018 Colon Cancer Screening-Colonoscopy 10/04/2028 10/04/2018 DTaP/Tdap/Td Vaccine (2 - Td or Tdap) 03/28/2029 03/28/2019 Cervical Cancer Screening Discontinued 08/06/2018 Hepatitis C Screening Completed 08/31/2018 Colon Cancer Screening-CT Colonography Discontinued 10/04/2018 Colon Cancer Screening-DNA Stool Discontinued 10/05/19 19 Colon Cancer Screening-FIT Discontinued 10/04/2018 Colon Cancer Screening-Sigmoidoscopy Discontinued 10/04/2018 Procedures Procedure Name Priority Date/Time Associated Diagnosis Comments EGFR Routine 06/03/2024 9:28 AM PIPE FITTER SUPERVISOR MAINTENANCE Localized osteoporosis without current pathological fracture THYROID FUNCTION CASCADE Routine 06/03/2024 9:28 AM PIPE FITTER SUPERVISOR MAINTENANCE Localized osteoporosis without current pathological fracture VITAMIN D 25 HYDROXY Routine 06/03/2024 9:28 AM PIPE FITTER SUPERVISOR MAINTENANCE Vitamin D deficiency PTH Routine 06/03/2024 9:28 AM PIPE FITTER SUPERVISOR MAINTENANCE Localized osteoporosis without current pathological fracture COMPREHENSIVE METABOLIC PANEL Routine 06/03/2024 9:28 AM PIPE FITTER SUPERVISOR MAINTENANCE Localized osteoporosis without current pathological fracture DEXA [...] Maintenance Results * eGFR (06/03/2024 9:28 AM PIPE FITTER SUPERVISOR MAINTENANCE) eGFR >90 >=60 mL/min/1. 73 m2 Comment: [...] last reviewed 2021. Blood 06/03/2024 9:28 AM PIPE FITTER SUPERVISOR MAINTENANCE 06/03/2024 2:47 PM PIPE FITTER SUPERVISOR MAINTENANCE us Vidal Bridges MD LAB BLOOD ORDERABLE S Final Result [facility] [address] [address] [place], [place] [id number] * Thyroid Function Ware (06/03/2024 9:28 AM PIPE FITTER SUPERVISOR MAINTENANCE) TSH 0.88 0.30 - 4.20 mcIUnit/mL Blood 06/03/2024 9:28 AM PIPE FITTER SUPERVISOR MAINTENANCE 06/03/2024 2:47 PM PIPE FITTER SUPERVISOR MAINTENANCE Vidal Bridges MD LAB BLOOD ORDERABLE S Final Result Performing Organization Address City/[facility] [place] [address] [address] [place] [address] * Vitamin D 25 hydroxy (06/03/2024 9:28 AM PIPE FITTER SUPERVISOR MAINTENANCE) Vitamin D 25-OH 75 30 - 80 ng/mL Blood 06/03/2024 9:28 AM PIPE FITTER SUPERVISOR MAINTENANCE 06/03/2024 2:47 PM PIPE FITTER SUPERVISOR MAINTENANCE Vidal Bridges MD LAB BLOOD ORDERABLE S Final Result [facility] [address] [address] [place] [address] * PTH (06/03/2024 9:28 AM PIPE FITTER SUPERVISOR MAINTENANCE) Pathologist [facility] PTH 36 15 - 65 pg/mL Blood 06/03/2024 9:28 AM PIPE FITTER SUPERVISOR MAINTENANCE 06/03/2024 2:47 PM PIPE FITTER SUPERVISOR MAINTENANCE Vidal Bridges MD LAB BLOOD ORDERABLE S Final Result Performing Organization Address [facility] de Phone Number [facility] [address] [address] [facility] [place] [address] * (ABNORMAL) Comprehensive metabolic panel (06/03/2024 9:28 AM PIPE FITTER SUPERVISOR MAINTENANCE) Pathologist [facility] Sodium 132(L) 135 - 145 mmol/L Potassium, pl 4.5 3.3 - 4.9 mmol/L [facility] Chloride 95(L) 97 - 110 mmol/L [facility] CO2 26 22 - 32 mmol/L [facility] Anion gap 11 2 - 15 mmol/L [facility] BUN 10 6 - 25 mg/dL [facility] Creatinine 0.70 0.60 - 1.10 mg/dL [facility] Glucose 102 70 - 199 mg/dL [facility] Comment: Interpretive Data Fasting glucose >/= 126 [...] classification and Diagnosis of Diabetes Diabetes Care 2021; 46: S19-S40. Current interpretive data was last [...] Units/L [facility] Blood 06/03/2024 9:28 AM PIPE FITTER SUPERVISOR MAINTENANCE 06/03/2024 2:47 PM PIPE FITTER SUPERVISOR MAINTENANCE us Darianaja Cyrus Bridges MD LAB BLOOD [place] [address] [address] Department [place] [address] * Dexa Axial Skeleton Bone Density 1 [...] previously -2.0 Procedure Note Trung Florian II, DO - 07/27/2023 Examination: Bone densitometry of the [...] Trung Florian II, D.O. Jann Neumann MD IM DXA PROCEDURES Final Result * Screening Mammogram [...] Kendrick MD - 10/04/2018 8:[address] [facility] Endoscopy Lab Patient Name: Cleo Whitley Procedure [...] by the physician, the nurse and the food and beverage director in the endoscopy suite. Mental Status Examination: [...] Metamucilis unsuccessful. Procedure Code(s): --- Professional --- 56561, Colonoscopy, flexible; diagnostic, including collection of specimen(s) by brushing or washing,when performed (separate procedure) Diagnosis Code(s): --- Professional --- Z12.11, Encounter for screening for malignantneoplasm of colon K63.89, Other specified diseases of intestine K57.30, Diverticulosis of large intestine without perforation or abscess without bleeding CPT copyright 2017 [employer]. All rights reserved. The codes documented in this report are preliminary and upon head up operator reviewmay be revised to meet current compliance requirements. Dr. Del Kendrick MD Del Kendrick M.D. 10/04/2018 9:40:01 AM This report has been electronically signed by the physician. Number of Addenda: 0 Note Initiated On: 10/04/2018 8:33 AM Del Kendrick MD ENDOSCOPY PROCEDURES Final R esult * Hepatitis C antibody (08/31/2018 8:49 AM CDT) Hep C Ab Negative Negative [facility] Blood specimen (specimen) 08/31/2018 8:49 AM CDT 08/31/2018 8:49 AM CDT Narrative [facility] - 08/31/2018 9:37 AM CDT Anabel Gonzalez NP LAB MICROBIOLOGY - GENERAL O RDERABLES Final Result [facility] [address] [address] [place] [address] * ThinPrep Pap with HPV (08/06/2018) 08/06/2018 Historical Provider LAB CYTOLOGY ORDERABLES F inal Result from Last 3 Months or Most Recently Relevant to Health Maintenance Insurance [facility] [employer] [facility] MEDICARE Care Teams Art Preparator Relationship Specialty Start Date End Date Domingo Calixto MD [address] [place] [address] PCP - General Family Medicine 04/13/22 [place] [address] [address] [id number] Consulting Physician Obstetrics and Gynecology 08/06/18 [place] [address] [address] [facility] [address] [place], [place] [id number] Consulting Physician Obstetrics and Gynecology 08/06/18
--- OUTSIDE RECORDS SUMMARY | 2024-08-26 08:23 | XMS_ITS | Encounter Summary ---
Author Organization [facility] Address [address] [place] [address] Care Team Providers Care Electrochemist Name Role Phone Unavailable Primary Care Provider Unavailabl e Encounter Details Date Type Department Care Team (Late st Contact Info) Description 12/28/2001 Outpatient Historical [facility] OUTSIDE PLANT FIELD ENGINEER - [address] [address] Omari Galindo MD [address] [place] [address] [place] [phone] Social History Tobacco Use Types Packs/Day Years Used Date Smoking Tobacco: Never Assessed Comments Unknown Sex and Gender Information Value Date Recorded Sex Assigned at Not on file Legal Sex Female 3:48 AM PYROTECHNIC ASSEMBLER Gender Identity Not on file Sexual Orientation Not on file documented as of this encounter Plan of Treatment Not on file documented as of this encounter Visit Diagnoses Not on filedocumented in this encounter
--- OUTSIDE RECORDS SUMMARY | 2024-08-26 08:23 | XMS_ITS | Encounter Summary ---
Author Organization [facility] Address 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
== END 2024-08-26 07:57 | disposition home or self-care (01) ==
LOC: CHSAUDIO 08:01
PROVIDERS: PCP Family Medicine; Visit Provider Family Medicine
DX: H90.3 Sensorineural hearing loss, bilateral (principal)
CPT/HCPCS: 92557; 92567

== ENCOUNTER 2024-11-01 13:31 | Outpatient (CLI) | payer BC, SELFPAY ==
--- NOTE | ~2024-11-01 | XR_ITS ---
EXAMINATION: XR lg joint inject/asp w image DATE: 11/01/2024 14:29 INDICATION: Right hip arthritis TECHNIQUE: A time-out was performed to verify the patient's name, date of , and procedure to b e performed. The procedure including the risks, benefits, and alternatives was discussed with the pat ient. Risks discussed included bleeding and infection. The patient understood the risks and agreed to proceed. The skin overlying the right hip joint was prepped and draped in usual sterile fashion. A nesthetic was administered with 1% lidocaine subcutaneously. A 22 G needle was advanced under fluoro scopic guidance into the joint. Injection of 1 mL of Omnipaque 240 confirmed intra-articular positio n of the needle. Subsequently, injectate consisting of 3 mm a 2:1 mixture of 0.5% bupivacaine: 80 mg /mL Depo-Medrol for a total dose of 80 mg Depo-Medrol was instilled. Washout of contrast was seen con firming intra-articular administration. The needle was removed and the entry site was cleaned and pavan ssed. There were no immediate complications. Fluoroscopy exposure time was 0.1 minutes. The total nu mber of images was 2. Total DAP was 0.44 mGycm^2 FINDINGS: Real-time fluoroscopy demonstrates the needle in the right hip joint. Patient's pain prior to procedure:07/15. Patient's pain following the procedure: 05/17. IMPRESSION: 1. Successful right hip joint injection of local anesthetic and steroid with decrease in the patient' s presenting pain. Reviewed, dictated and finalized at location A. IMPRESSION: 1. Successful right hip joint injection of local anesthetic and steroid with de crease in the patient's presenting pain.
== END 2024-11-01 13:32 | disposition home or self-care (01) ==
PROVIDERS: PCP Family Medicine; Visit Provider Nurse Practitioner Family
DX: M16.11 Unilateral primary osteoarthritis, right hip (principal)
CPT/HCPCS: 20610; 77002; J1010; Q9966

== ENCOUNTER 2024-11-28 07:25 | Outpatient (CLI) | payer BC, SELFPAY ==
--- OUTSIDE RECORDS SUMMARY | 2024-11-28 07:30 | XMS_ITS | Clinical Summary ---
Author Organization [facility] Address [address] [place] [address] Care Team Providers Care Catering Service Manager Name Role Phone Unavailable Primary Care Provider [...] on file Legal Sex Female 3:48 AM NATURAL RESOURCES ENGINEER Gender Identity Not on file Sexual Orientation Not on file Last Filed Vital Signs Vital Sign Reading Time Taken Comments Blood Pressure 114/66 06/24/2009 11:44 AM NATURAL RESOURCES ENGINEER Pulse - - Temperature - - Respiratory Rate - - Oxygen Saturation - - Inhaled Oxygen Concentration - - Weight 59 kg (130 lb) 06/24/2009 11:44 AM NATURAL RESOURCES ENGINEER Height 157.5 cm (5' 2) 06/24/2009 11:44 AM NATURAL RESOURCES ENGINEER Body Mass Index 23.78 06/24/2009 11:44 AM NATURAL RESOURCES ENGINEER Plan of Treatment Health Maintenance Due Date [...] 06/24 OSTEOPOROSIS SCREENING 2023 INFLUENZA VACCINE (#1) 2024 RSV VACCINE (60+ or ) (1 - [...] Most Recently Relevant to Health Maintenance Insurance [employer] [facility] [facility] Advance Directives For more information, please contact: [phone] Documents on File Type Date Recorded Patient Founder And Ceo Expl anation Advance Directive POA 04/25/2008 Advance Directive Living Will 04/25/2008
--- OUTSIDE RECORDS SUMMARY | 2024-11-28 07:30 | XMS_ITS | Clinical Summary ---
Author Organization [facility] Address [address] [place] [address] Phone Care Team Providers Care Construction Site Manager Name Role Phone Martha Suero MD Unavailable Martha Suero MD Unavailable Domingo Calixto MD Primary Care Provide r Allergies No known active allergies Medications lisinopriL (PRINIVIL,ZESTRI L) 10 mg tablet Take 1 tablet (10 mg total) by mouth daily 90 tablet 3 01/22/20 21 Active Prolia 60 mg/mL syringeIndicatio ns:Localized osteoporosis without current pathological fracture Inject 1ml SUBCUTANEOUSLY EVERY 6 MONTHS 1 mL 1 08/01/19 25 Active Active Problems Problem Noted Date Diagnosed Date [...] 03/06/2019 Assessment & Plan (05/11/2023 10:01 AM NURSE RECEPTIONIST): DEXA requested Continue Prolia Ca and vit D intake discussed Weight bearing exercise Assessment & Plan (04/13/2022 9:49 AM NURSE RECEPTIONIST): Continue Prolia Weight bearing exercise Ca and vit D intake discussed and advised Assessment & Plan (03/31/2021 1:56 PM NURSE RECEPTIONIST): Continue with Prolia Will check PTH and [...] She definitely wants to stop the Forteo, Pramod will be my next recommendation Assessment & [...] (09/19/2018): Added automatically from request for surgery [id number] Assessment & Plan (02/09/2021 4:01 PM CDT): -Discussed recommendations for exercise at least 30 minutes moderate to vigorous exercise most days of the week. (minimum 150 minutes weekly) -Discussed MyPlate recommendations and increasing fruits and vegetables. -Cancer screening: recommended colon cancer screening- due 2028; cervical cancer screening- last pap 2018, due 2021 per SPECIAL FORCES ENGINEER SERGEANT recommendations; annual mammogram and monthly self breast [...] screening- last pap 2018, due 2021 per SPECIAL FORCES ENGINEER SERGEANT recommendations; annual mammogram and monthly self breast [...] months. Assessment & Plan (03/28/2019 8:13 AM NURSE RECEPTIONIST): Lipid abnormalities are going to be assessed [...] appointment. Assessment & Plan (03/28/2019 8:13 AM NURSE RECEPTIONIST): Hypertension is improving with treatment. Continue current [...] Completion Father Ole Parsons Hypertension Mother Kalyn Triplo Pneumonia Mother Kalyngregory Parsons Lung cancer Paternal Grandfather Stomach cancer [...] on file Legal Sex Female 1:02 AM NURSE RECEPTIONIST Gender Identity Not on file Sexual Orientation [...] Comments Blood Pressure 120/72 06/03/2024 8:48 AM NURSE RECEPTIONIST Pulse 68 06/03/2024 8:48 AM NURSE RECEPTIONIST Temperature 36.9 C (98.4 F) 02/09/2021 10:52 AM CDT Respiratory Rate 15 06/03/2024 8:48 AM NURSE RECEPTIONIST Oxygen Saturation 98% 10/04/2018 9:47 AM CDT Inhaled Oxygen Concentration - - Weight 64 kg (141 lb) 06/03/2024 8:48 AM NURSE RECEPTIONIST Height 157.5 cm (5' 2) 06/03/2024 8:48 AM NURSE RECEPTIONIST Body Mass Index 25.79 06/03/2024 8:48 AM NURSE RECEPTIONIST Plan of Treatment Health Maintenance Due Date Last Done Comments Hepatitis B Screening 1976 Pneumococcal vaccine 65+ (1 of 1 - PCV) 2008 Zoster Vaccine (2 of 2) 01/29/2020 12/04/2019 Well Visit 65+ 2023 02/09/2021, 11/06, 08/06/2018 Breast Cancer Screening-Mammogram 08/24/2023 08/23/2022, 07/08/2021, 01/17/2020, Additional history exists Covid-19 Vaccine (3 - 2023-2 5 season) 2024 05/15/2020, 04/24/2020 Depression Screening 05/11/2024 05/11/2023, 04/13/2022, 03/31/2021, Additional history exists Fall Risk Assessment 05/11/2024 05/11/2023, 02/09/2021, 11/27/2019, Additional history exists Influenza Vaccine (#1) 2025 , 02/05/2019, 02/05/2018 Osteoporosis Screening-Bone Density Scan 07/26/2025 07/27/2023, 10/13/2020, 08/15/2018 Colon Cancer Screening-Colonoscopy 10/04/2028 10/04/2018 DTaP/Tdap/Td Vaccine (2 - Td or Tdap) 03/28/2029 03/28/2019 Cervical Cancer Screening Discontinued 08/06/2018 Hepatitis C Screening Completed 08/31/2018 Colon Cancer Screening-CT Colonography Discontinued 10/04/2018 Colon Cancer Screening-DNA Stool Discontinued 10/05/19 19 Colon Cancer Screening-FIT Discontinued 10/04/2018 Colon Cancer Screening-Sigmoidoscopy Discontinued 10/04/2018 Procedures Procedure Name Priority Date/Time Associated Diagnosis Comments DEXA AXIAL SKELETON BONE DENSITY 1 OR [...] Recently Relevant to Health Maintenance Results * Dexa Axial Skeleton Bone Density 1 [...] Kendrick MD - 10/04/2018 8:33 AM CDT [facility] Patient Name: Cleo Whitley Procedure [...] by the physician, the nurse and the sustainability project coordinator in the endoscopy suite. Mental Status Examination: [...] Metamucilis unsuccessful. Procedure Code(s): --- Professional --- 87144, Colonoscopy, flexible; diagnostic, including collection of specimen(s) by brushing or washing,when performed (separate procedure) Diagnosis Code(s): --- Professional --- Z12.11, Encounter for screening for malignantneoplasm of colon K63.89, Other specified diseases of intestine K57.30, Diverticulosis of large intestine without perforation or abscess without bleeding CPT copyright 2017 [employer]. All rights reserved. The codes documented in this report are preliminary and upon leather worker reviewmay be revised to meet current compliance requirements. Dr. Del Kendrick MD Del Kendrick M.D. 10/04/2018 9:40:01 AM This report has been electronically signed by the physician. Number of Addenda: 0 Note Initiated On: 10/04/2018 8:33 AM us Del Kendrick MD ENDOSCOPY PROCEDURES Final R esult * Hepatitis C antibody (08/31/2018 8:49 AM CDT) Hep C Ab Negative Negative KALEE Blood specimen (specimen) 08/31/2018 8:49 AM CDT 08/31/2018 8:49 AM CDT Narrative KALEE CH - 08/31/2018 9:37 AM CDT us Anabel Gonzalez NP LAB MICROBIOLOGY - GENERAL O RDERABLES Final Result KALEE [address] Department [place] [address] * ThinPrep Pap with HPV (08/06/2018) 08/06/2018 Historical Provider LAB CYTOLOGY ORDERABLES F inal Result from Last 3 Months or Most Recently Relevant to Health Maintenance Insurance [employer]UE [employer] OOS [employer] ACCESS ANTHEM ACCESS MEDICARE PROVENCAL ACCESS OOS Care Teams Construction Site Manager Relationship Specialty Start Date End Date Domingo Calixto MD [address] [place] [address] PCP - General Family Medicine 04/13/22 [place] [id number] [id number] Consulting Physician Obstetrics and Gynecology 08/06/18 [place] [address] [address] [phone] Consulting Physician Obstetrics and Gynecology 08/06/18
--- OUTSIDE RECORDS SUMMARY | 2024-11-28 07:30 | XMS_ITS | Encounter Summary ---
Author Organization [facility] Address [address] [place] [address] Care Team Providers Care Paint Spray Tender Name Role Phone Unavailable Primary Care Provider Unavailabl e Encounter Details Date Type Department Care Team (Late st Contact Info) Description 12/03/2004 Outpatient Historical [facility] BRICK CARRIER - [address] [address] Omari Galindo MD [address] [place] [address] [place] [phone] Social History Tobacco Use Types Packs/Day Years Used Date Smoking Tobacco: Never Assessed Comments Unknown Sex and Gender Information Value Date Recorded Sex Assigned at Not on file Legal Sex Female 3:48 AM RIG MANAGER Gender Identity Not on file Sexual Orientation Not on file documented as of this encounter Plan of Treatment Not on file documented as of this encounter Visit Diagnoses Not on filedocumented in this encounter
--- OUTSIDE RECORDS SUMMARY | 2024-11-28 07:30 | XMS_ITS | Encounter Summary ---
Author Organization [facility] Address [address] [place] [address] Care Team Providers Care Gum Maker Name Role Phone Unavailable Primary Care Provider Unavailabl e Encounter Details Date Type Department Care Team (Late st Contact Info) Description 12/28/2001 Outpatient Historical [facility] FLEET ADMINISTRATIVE ASSISTANT - [address] [address] Omari Galindo MD [address] [place] [address] [place] [phone] Social History Tobacco Use Types Packs/Day Years Used Date Smoking Tobacco: Never Assessed Comments Unknown Sex and Gender Information Value Date Recorded Sex Assigned at Not on file Legal Sex Female 3:48 AM PRODUCTION TROUBLESHOOTER Gender Identity Not on file Sexual Orientation Not on file documented as of this encounter Plan of Treatment Not on file documented as of this encounter Visit Diagnoses Not on filedocumented in this encounter
--- OUTSIDE RECORDS SUMMARY | 2024-11-28 07:30 | XMS_ITS | Encounter Summary ---
Author Organization [facility] Address [address] [place] [address] Care Team Providers Care Software Quality Assurance Analyst Name Role Phone Unavailable Primary Care Provider Unavailabl e Encounter Details Date Type Department Care Team (Late st Contact Info) Description 11/29/2006 Outpatient Historical [facility] BIOPROCESS ENGINEER - [address] [address] Omari Galindo MD [address] [place] [address] [place] [phone] Social History Tobacco Use Types Packs/Day Years Used Date Smoking Tobacco: Never Assessed Comments Unknown Sex and Gender Information Value Date Recorded Sex Assigned at Not on file Legal Sex Female 3:48 AM SHELL ASSEMBLER Gender Identity Not on file Sexual Orientation Not on file documented as of this encounter Plan of Treatment Not on file documented as of this encounter Visit Diagnoses Not on filedocumented in this encounter
--- OUTSIDE RECORDS SUMMARY | 2024-11-28 07:30 | XMS_ITS | Referral Summary ---
Author Organization [facility] Address [address] [place] [address] Phone Care Team Providers Care Automotive Buyer Name Role Phone Martha Suero MD Unavailable [...] 03/06/2019 Assessment & Plan (05/11/2023 10:01 AM JAVA DEVELOPER ANALYST): DEXA requested Continue Prolia Ca and vit D intake discussed Weight bearing exercise Assessment & Plan (04/13/2022 9:49 AM JAVA DEVELOPER ANALYST): Continue Prolia Weight bearing exercise Ca and vit D intake discussed and advised Assessment & Plan (03/31/2021 1:56 PM JAVA DEVELOPER ANALYST): Continue with Prolia Will check PTH and [...] (09/19/2018): Added automatically from request for surgery [id number] Assessment & Plan (02/09/2021 4:01 PM CDT): -Discussed recommendations for exercise at least 30 minutes moderate to vigorous exercise most days of the week. (minimum 150 minutes weekly) -Discussed MyPlate recommendations and increasing fruits and vegetables. -Cancer screening: recommended colon cancer screening- due 2028; cervical cancer screening- last pap 2018, due 2021 per HIGH SCHOOL HVAC R INSTRUCTOR recommendations; annual mammogram and monthly self breast [...] screening- last pap 2018, due 2021 per HIGH SCHOOL HVAC R INSTRUCTOR recommendations; annual mammogram and monthly self breast [...] months. Assessment & Plan (03/28/2019 8:13 AM JAVA DEVELOPER ANALYST): Lipid abnormalities are going to be assessed [...] appointment. Assessment & Plan (03/28/2019 8:13 AM JAVA DEVELOPER ANALYST): Hypertension is improving with treatment. 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 on file Not on file Not on file Last Filed Vital Signs Vital Sign Reading Time Taken Comments Blood Pressure 120/72 06/03/2024 8:48 AM JAVA DEVELOPER ANALYST Pulse 68 06/03/2024 8:48 AM JAVA DEVELOPER ANALYST Temperature 36.9 C (98.4 F) 02/09/2021 10:52 AM CDT Respiratory Rate 15 06/03/2024 8:48 AM JAVA DEVELOPER ANALYST Oxygen Saturation 98% 10/04/2018 9:47 AM CDT Inhaled Oxygen Concentration - - Weight 64 kg (141 lb) 06/03/2024 8:48 AM JAVA DEVELOPER ANALYST Height 157.5 cm (5' 2) 06/03/2024 8:48 AM JAVA DEVELOPER ANALYST Body Mass Index 25.79 06/03/2024 8:48 AM JAVA DEVELOPER ANALYST Plan of Treatment Not on file Procedures [...] Trung Florian II, D.O. Jann Neumann MD [facility] PROCED[facility] Final Result * Screening Mammogram [...] significant interval change from the prior study. us Self Screening Mammogram IMG MAMMO PROCEDURES Fi nal Result * COLONOSCOPY (10/04/2018 8:33 AM CDT) Anatomical Region Laterality Modality Other Narrative Procedure Note Del Kendrick MD - 10/04/2018 8:33 AM CDT [facility] Patient Name: Cleo Whitley Procedure [...] by the physician, the nurse and the resolution analyst in the endoscopy suite. Mental Status Examination: [...] Metamucilis unsuccessful. Procedure Code(s): --- Professional --- 23943, Colonoscopy, flexible; diagnostic, including collection of specimen(s) by brushing or washing,when performed (separate procedure) Diagnosis Code(s): --- Professional --- Z12.11, Encounter for screening for malignantneoplasm of colon K63.89, Other specified diseases of intestine K57.30, Diverticulosis of large intestine without perforation or abscess without bleeding CPT copyright 2017 [employer] [employer]. All rights reserved. The codes documented in this report are preliminary and upon bandoleer straightener stamper reviewmay be revised to meet current compliance requirements. Dr. Del Kendrick MD Del Kendrick M.D. 10/04/2018 9:40:01 AM This report has been electronically signed by the physician. Number of Addenda: 0 Note Initiated On: 10/04/2018 8:33 AM us Del Kendrick MD ENDOSCOPY PROCEDURES Final R esult * Hepatitis C antibody (08/31/2018 8:49 AM CDT) Hep C Ab Negative Negative CERNER Blood specimen (specimen) 08/31/2018 8:49 AM CDT 08/31/2018 8:49 AM CDT Narrative KALEE RUSSELL - 08/31/2018 9:37 AM CDT us Anabel Gonzalez NP LAB MICROBIOLOGY - GENERAL O RDERABLES Final Result KALEE [address] Department [place] [address] * ThinPrep Pap with HPV (08/06/2018) 08/06/2018 us Historical Provider LAB CYTOLOGY ORDERABLES F inal Result from Last 3 Months or Most Recently Relevant to Health Maintenance Insurance [employer] OOS ANTHEM ACCESS [facility] ACCESS MEDICARE BLUE ACCESS OOS Member Subscriber Plan / Payer (Ef fective 2019-Present) Name:Cleo Whitley Relation to Subscriber:Spouse Name:AMINTA WHITLEY Date of :1964 (Home) Address: [address] [place] [phone] Payer ID:[id number] (NAIC) Type:BC ALLIANCE Address: [address] [place] [id number] Care Teams Automotive Buyer Relationship Specialty Start Date End Date Domingo Calixto MD [address] [place] [address] PCP - General Family Medicine 04/13/22 [place] [address] [address] Consulting Physician Obstetrics and Gynecology 08/06/18 [place] [address] [address] [address] Consulting Physician Obstetrics and Gynecology 08/06/18
--- NOTE | 2024-11-28 07:36 | ECG_ITS ---
Test Date: 2024-11-28 07:45:46 Measurements Intervals Woodruff Rate: 65 P: 69 HI: 188 QRS: 58 QRSD: 87 T: 42 QT: 361 QTc: 377 Interpretive Statements SINUS RHYTHM No previous ECG available for comparison Electronically Signed On 11-29-2024 15:43:37 CDT by Jorge Luis Aguilera M.D.
[2024-11-28 07:40] LABS: Hematocrit 35.4 % (35.0-42.0); Hemoglobin 12.0 g/dL (11.7-13.8); Immature Granulocyte Percent A 0.9 % (0.0-0.0); Lymphocytes Absolute Auto 2.23 K/mm3 (1.10-4.50); Mean Corpuscular HGB Conc 33.9 g/dL (32-36); Mean Corpuscular Hemoglobin 33.1 pg (27.0-31.0); Mean Corpuscular Volume 97.8 fL (78.0-102.0); Nucleated Red Blood Cells Absolute Auto 0.00 K/mm3 (0.00-0.00); Nucleated Red Blood Cells Perc 0.0 % (0-0.0); Platelet Count Result 298 K/mm3 (150-420); Red Blood Count 3.62 M/mm3 (4.20-5.40); White Blood Count 5.9 K/mm3 (4.8-10.8)
[2024-11-28 07:41] LABS: Add Urine Microscopic? YES; Appearance Urine Clear (Clear); Glucose Urine UA Negative (Negative); Leukocyte Esterase Ur 3+ LEU/UL (Negative); Nitrate Urine Negative (Negative); Specific Grav Ur 1.020 (1.010-1.020)
[2024-11-28 08:30] LABS: Anion Gap 8 mmol/L (4-12); Blood Urea Nitrogen 18 mg/dL (7-17); Calcium 9.6 mg/dL (8.4-10.2); Carbon Dioxide 29 mmol/L (22-30); Chloride 97 mmol/L (98-107); Estimated Glomerular Filt Rate > 60; Glucose 96 mg/dL (65-110); Osmolality Calculated 279 mOsm/kg (285-295); Potassium 4.9 mmol/L (3.4-5.0); Sodium 134 mmol/L (137-145)
== END 2024-11-28 07:26 | disposition home or self-care (01) ==
LOC: CHSLAB 07:26
PROVIDERS: PCP Family Medicine; Visit Provider Nurse Practitioner Family
DX: I10 Essential (primary) hypertension (principal); R53.83 Other fatigue; R82.90 Unspecified abnormal findings in urine
CPT/HCPCS: 80048; 80307; 81001; 85025; 87086; 93005

== ENCOUNTER 2025-01-21 13:04 | Outpatient (CLI) | payer BC, SELFPAY ==
--- OUTSIDE RECORDS SUMMARY | 2018-09-10 06:28 | XMS_ITS | Continuity of Care Document ---
Author Organization [facility] Address [address] [place] [address] Phone Care Team Providers Care Sorting Machine Attendant Name Role Phone Sae Doyle MD Unavailable Unavailable Advance Directives Directive Yes / No Effective Date File Name No Information Encounters Encounter Description Practice Location Reason(s) For Visit Diagnoses Date Provider Providers Copied on Encounter [facility], [address], [place], [place], [id number], [place] tel:[phone] [facility] No Information Yanira Quevedo. [address], [place], [id number] , [place]. tel:[phone] Family History Family Member Type Diagnosis Age At Onset No Information Payers Payer name Insurance type Covered republican ID Authoriza tion(s) No Information Social History Type Description Quantity Date Captured Comments Sex Female Smoking Status No Information Chief Complaint And Reason For Visit No Information Reason For Referral Reason For Referral No Information History Of Present Illness Encounter Date Complaint History Of Prese nt Illness No Information Functional Status Date Functional Assessmen t No Information Instructions Date Instruction Additional Infor mation No Information Assessments Type Assessment Date No Information Patient Care Teams Name Effective Dates (start - stop) Status Members No Information
[2025-01-21 15:27] LABS: Add Urine Microscopic? YES; Appearance Urine Clear (Clear); Glucose Urine UA Negative (Negative); Leukocyte Esterase Ur 1+ LEU/UL (Negative); Nitrate Urine Negative (Negative); Specific Grav Ur 1.015 (1.001-1.035)
[2025-01-21 15:32] LABS: Hematocrit 33.6 % (37.0-47.0); Hemoglobin 11.5 g/dL (12.0-15.0); Immature Granulocyte Percent A 0.8 % (0-0.5); Lymphocytes Absolute Auto 2.58 K/mm3 (0.9-3.2); Mean Corpuscular HGB Conc 34.2 g/dl (32-36); Mean Corpuscular Hemoglobin 33.1 pg (26-34); Mean Corpuscular Volume 96.8 fl (80-100); Nucleated Red Blood Cells Absolute Auto 0.000 K/mm3 (0.0-0.012); Nucleated Red Blood Cells Perc 0.0 % (0.0-0.2); Platelet Count Result 317 k/mm3 (150-375); Red Blood Count 3.47 M/mm3 (4.2-5.4); White Blood Count 9.3 K/mm3 (4.5-10.0)
--- OUTSIDE RECORDS SUMMARY | 2025-01-21 15:35 | XMS_ITS | Encounter Summary ---
Author Organization [facility] Address [address] [place] [address] Care Team Providers Care Candle Extrusion Machine Operator Name Role Phone Unavailable Primary Care Provider Unavailabl e Encounter Details Date Type Department Care Team (Late st Contact Info) Description 12/28/2001 Outpatient Historical [facility] TIE TAMPER - [address] [address] Omari Galindo MD [address] [place] [address] [place] [phone] Social History Tobacco Use Types Packs/Day Years Used Date Smoking Tobacco: Never Assessed Comments Unknown Sex and Gender Information Value Date Recorded Sex Assigned at Not on file Legal Sex Female 3:48 AM CLIENT INSIGHTS CONSULTANT Gender Identity Not on file Sexual Orientation Not on file documented as of this encounter Plan of Treatment Not on file documented as of this encounter Visit Diagnoses Not on filedocumented in this encounter
--- OUTSIDE RECORDS SUMMARY | 2025-01-21 15:35 | XMS_ITS | Clinical Summary ---
Author Organization [facility] Address [address] [place] [address] Care Team Providers Care Passenger Relations Representative Name Role Phone Unavailable Primary Care Provider [...] on file Legal Sex Female 3:48 AM MOLDING PRESS OPERATOR Gender Identity Not on file Sexual Orientation Not on file Last Filed Vital Signs Vital Sign Reading Time Taken Comments Blood Pressure 114/66 06/24/2009 11:44 AM MOLDING PRESS OPERATOR Pulse - - Temperature - - Respiratory Rate - - Oxygen Saturation - - Inhaled Oxygen Concentration - - Weight 59 kg (130 lb) 06/24/2009 11:44 AM MOLDING PRESS OPERATOR Height 157.5 cm (5' 2) 06/24/2009 11:44 AM MOLDING PRESS OPERATOR Body Mass Index 23.78 06/24/2009 11:44 AM MOLDING PRESS OPERATOR Plan of Treatment Health Maintenance Due Date [...] Most Recently Relevant to Health Maintenance Insurance Medical Breakthroughs Fund [facility] Address: [facility] [id number] [place] [address] Advance Directives For more information, please contact: [phone] Documents on File Type Date Recorded Patient Bankman Expl anation Advance Directive POA 04/25/2008 Advance Directive Living Will 04/25/2008
--- OUTSIDE RECORDS SUMMARY | 2025-01-21 15:35 | XMS_ITS | Clinical Summary ---
Author Organization [facility] Address [address] [place] [address] Phone Care Team Providers Care Animal Care Assistant Name Role Phone Martha Suero MD Unavailable [...] 03/06/2019 Assessment & Plan (05/11/2023 10:01 AM DIALYSIS SOCIAL WORKER): DEXA requested Continue Prolia Ca and vit D intake discussed Weight bearing exercise Assessment & Plan (04/13/2022 9:49 AM DIALYSIS SOCIAL WORKER): Continue Prolia Weight bearing exercise Ca and vit D intake discussed and advised Assessment & Plan (03/31/2021 1:56 PM DIALYSIS SOCIAL WORKER): Continue with Prolia Will check PTH [...] (09/19/2018): Added automatically from request for surgery [id number] Assessment & Plan (02/09/2021 4:01 PM CDT): -Discussed recommendations for exercise at least 30 minutes moderate to vigorous exercise most days of the week. (minimum 150 minutes weekly) -Discussed MyPlate recommendations and increasing fruits and vegetables. -Cancer screening: recommended colon cancer screening- due 2028; cervical cancer screening- last pap 2018, due 2021 per BICYCLE RENTAL CLERK recommendations; annual mammogram and monthly self breast [...] screening- last pap 2018, due 2021 per BICYCLE RENTAL CLERK recommendations; annual mammogram and monthly self breast [...] months. Assessment & Plan (03/28/2019 8:13 AM DIALYSIS SOCIAL WORKER): Lipid abnormalities are going to be [...] appointment. Assessment & Plan (03/28/2019 8:13 AM DIALYSIS SOCIAL WORKER): Hypertension is improving with treatment. Continue [...] on file Legal Sex Female 1:02 AM DIALYSIS SOCIAL WORKER Gender Identity Not on file Sexual [...] Comments Blood Pressure 120/72 06/03/2024 8:48 AM DIALYSIS SOCIAL WORKER Pulse 68 06/03/2024 8:48 AM DIALYSIS SOCIAL WORKER Temperature 36.9 C (98.4 F) 02/09/2021 10:52 AM CDT Respiratory Rate 15 06/03/2024 8:48 AM DIALYSIS SOCIAL WORKER Oxygen Saturation 98% 10/04/2018 9:47 AM CDT Inhaled Oxygen Concentration - - Weight 64 kg (141 lb) 06/03/2024 8:48 AM DIALYSIS SOCIAL WORKER Height 157.5 cm (5' 2) 06/03/2024 8:48 AM DIALYSIS SOCIAL WORKER Body Mass Index 25.79 06/03/2024 8:48 AM DIALYSIS SOCIAL WORKER Plan of Treatment Health Maintenance Due Date Last Done Comments Hepatitis B Screening 1976 Pneumococcal vaccine 65+ (1 of 1 - PCV) 2008 Zoster Vaccine (2 of 2) 01/29/2020 12/04/2019 Covid-19 Vaccine (3 - Pfizer risk series) 06/12/2020 05/15/2020, 04/24/2020 Well Visit 65+ 2023 02/09/2021, 11/06, 08/06/2018 Breast Cancer Screening-Mammogram 08/24/2023 08/23/2022, 07/08/2021, 01/17/2020, Additional history exists Depression Screening 05/11/2024 05/11/2023, 04/13/2022, 03/31/2021, Additional [...] Kendrick MD - 10/04/2018 8:33 AM CDT [facility] Patient Name: Cleo Whitley Procedure [...] by the physician, the nurse and the grape pruner in the endoscopy suite. Mental Status Examination: [...] Metamucilis unsuccessful. Procedure Code(s): --- Professional --- 75527, Colonoscopy, flexible; diagnostic, including collection of specimen(s) by brushing or washing,when performed (separate procedure) Diagnosis Code(s): --- Professional --- Z12.11, Encounter for screening for malignantneoplasm of colon K63.89, Other specified diseases of intestine K57.30, Diverticulosis of large intestine without perforation or abscess without bleeding CPT copyright 2017 [employer]. All rights reserved. The codes documented in this report are preliminary and upon director of investigations reviewmay be revised to meet current compliance [...] - GENERAL O RDERABLES Final Result [facility] [address] [address] [place] [address] * ThinPrep Pap with HPV (08/06/2018) 08/06/2018 Historical Provider LAB CYTOLOGY ORDERABLES F inal Result from Last 3 Months or Most Recently Relevant to Health Maintenance Insurance [facility] Address: [place] [address] [employer] ACCESS OOS ANTH ACCESS ANTHEM ACCESS MEDICARE [employer]. OOS Care Teams Animal Care Assistant Relationship Specialty Start Date End Date Domingo Calixto MD [address] [place] [address] PCP - General Family Medicine 04/13/22 [place] [id number] [address] [address] Consulting Physician Obstetrics and Gynecology 08/06/18 [place] [id number] [address] [id number] Consulting Physician Obstetrics and Gynecology 08/06/18
--- OUTSIDE RECORDS SUMMARY | 2025-01-21 15:35 | XMS_ITS | Encounter Summary ---
Author Organization [facility] Address 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
--- OUTSIDE RECORDS SUMMARY | 2025-01-21 15:35 | XMS_ITS | Encounter Summary ---
Author Organization [facility] Address [address] [place] [address] Care Team Providers Care Supervisor Steel Division Name Role Phone Unavailable Primary Care Provider Unavailabl e Encounter Details Date Type Department Care Team (Late st Contact Info) Description 12/03/2004 Outpatient Historical [facility] SUPPORT DBA - [address] [address] Omari Galindo MD [address] [place] [address] [place] [phone] Social History Tobacco Use Types Packs/Day Years Used Date Smoking Tobacco: Never Assessed Comments Unknown Sex and Gender Information Value Date Recorded Sex Assigned at Not on file 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
[2025-01-21 15:36] LABS: Albumin Level 4.4 g/dL (3.5-5.1); Anion Gap 9 mmol/L (4-12); Blood Urea Nitrogen 17 mg/dL (7-17); Calcium 9.4 mg/dL (8.4-10.2); Carbon Dioxide 26 mmol/L (22-30); Chloride 96 mmol/L (98-107); Estimated Glomerular Filt Rate > 60; Glucose 86 mg/dL (65-110); Potassium 4.2 mmol/L (3.4-5.0); Sodium 131 mmol/L (137-145)
[2025-01-21 15:40] LABS: Hemoglobin A1C 4.9 % (<5.7)
[2025-01-21 15:46] LABS: INR 1.4; Prothrombin Time 16.5 Seconds (11.1-14.7)
[2025-01-21 15:47] LABS: Partial Thromboplastin Time 31.1 Seconds (22.3-36.8)
[2025-01-21 16:32] LABS: MRSA (PCR) NOT DETECTED (NOT DETECTE)
== END 2025-01-21 13:05 | disposition home or self-care (01) ==
PROVIDERS: PCP Family Medicine; Visit Provider Orthopaedic Surgery
DX: Z01.818 Encounter for other preprocedural examination (principal); M16.11 Unilateral primary osteoarthritis, right hip; R82.90 Unspecified abnormal findings in urine
CPT/HCPCS: 80048; 80307; 81001; 82040; 83036; 85025; 85610; 85730; 87086; 87641

== ENCOUNTER 2025-02-04 01:39 | Day surgery (SDC) | payer BC, SELFPAY ==
--- OUTSIDE RECORDS SUMMARY | 2018-09-10 06:28 | XMS_ITS | Continuity of Care Document ---
Author Organization [facility] Address [address] [place] [address] Phone Care Team Providers Care Communications Electrician Supervisor Name Role Phone Sae Doyle MD Unavailable Unavailable Advance Directives Directive Yes / No Effective Date File Name No Information Encounters Encounter Description Practice Location Reason(s) For Visit Diagnoses Date Provider Providers Copied on Encounter [email or web address], [address], [place], [place], [id number], [place] tel:[phone] [facility] No Information Yanira Quevedo. [address] [place], [place], [id number] , [place]. tel:[phone] Family History Family Member Type Diagnosis Age At Onset No Information Payers Payer name Insurance type Covered green party ID Authoriza tion(s) No Information Social History [...]
[2025-01-21 14:10] VITALS: BP 142/84; PULSE 68; RESP 16; TEMP 36.8; O2SAT 97; BMI 26.8
--- NOTE | 2025-01-21 14:29 | PC.NURSE ---
Addendum entered by Jesusita Almendarez RN 01/21/25 14:50: INSTRUCT PATIENT TO HOLD IBUPROFEN PRE-OP PER DR SANZ, SHE RELAYS UNDERSTANDING. Original Note: Report to the Outpatient Waiting Room, entrance under the green pavilion located off [facility], at time __6:00AM___ on date __02/04/25___. Planned Procedure Time: ___7:30AM___.? Time changes happen often and if your time is changed the preop area will call you the afternoon before. - You and your visitor will be asked to self-screen and do not enter if you have any COVID symptoms. Please call surgeon if you need to reschedule. - A mask is optional within the hospital at this time. Patients may have clear liquids (water, carbonated beverages, clear teas, apple juice) until 3 hours prior to surgery (4:30AM) with a maximum of 20 ounces. - No food from midnight until time of surgery and no smoking, or chewing tobacco (or any form of nicotine). No chewing gum, candy or mints. Take only the following medications with a SIP of water on the morning of surgery: NONE DO NOT STOP ANY OF YOUR OTHER PRESCRIPTION MEDICATIONS PRIOR TO SURGERY EXCEPT THE FOLLOWING Hold all vitamins and supplements for 3 days per anesthesiologist. LAST DOSE 01/31/25 Medications to discontinue per physician NONE Date to take last dose Please no make-up, nail slovak, hairspray, perfume, deodorant, or body powder the day of surgery.? No jewelry (including any body piercings) or valuables the day of surgery, leave them at home.? Please take a shower or bath the night before, or the morning of, surgery with an antibacterial soap.? Wear comfortable, loose fitting clothing.? HIBICLENS SHOWER DAILY FOR 7 DAYS PRE-OP PER DR SANZ. - Jewelry must be removed prior to entering the operating room.? Rings and piercings that are not removed may be cut off. - The hospital will not accept responsibility for valuables.? - Please leave all valuables, including medications, at home the day of surgery. If you are going home after surgery, a licensed cab driver must drive you home.? - NO public transportation without another adult if you receive anesthesia. - We recommend that an adult stay with you for 24 hours following discharge. - We also recommend that you do not drive, make important decision, drink alcoholic beverages, or take any drugs that were not prescribed by your health care provider for at least 24 hours after your discharge time. Follow any additional instructions given to you from your surgeon. Telephone instructions given to ____PATIENT and asked if any additional questions and then verbalized understanding. Patient advised to call surgeon office or pre surgery nurse liaison [phone] if any additional questions.
[2025-02-04] VITALS (17 sets, daily range): BP systolic 120–153; BP diastolic 57–87; PULSE 71–101; RESP 12–18; TEMP 36.2–37.2; O2SAT 95–100; BMI 26.2
--- NOTE | ~2025-02-04 | XR_ITS ---
EXAMINATION: XR hip RT 1V, 02/04/2025 9:55 CDT HISTORY: POST OP RIGHT ADI COMPARISON: No comparisons available. Findings: No acute fracture or malalignment. Arthroplasty intact Soft tissues unremarkable. Impression: No acute fracture or malalignment. Reviewed, dictated and finalized at location P. Impression: No acute fracture or malalignment.
--- OUTSIDE RECORDS SUMMARY | 2025-02-04 01:43 | XMS_ITS | Encounter Summary ---
Author Organization [facility] Address [address] [place] [address] Care Team Providers Care Seo Specialist Name Role Phone Unavailable Primary Care Provider Unavailabl e Encounter Details Date Type Department Care Team (Late st Contact Info) Description 11/29/2006 Outpatient Historical [facility] DIE BAKER - [address] [address] Omari Galindo MD [address] [place] [address] [place] [phone] Social History Tobacco Use Types Packs/Day Years Used Date Smoking Tobacco: Never Assessed Comments Unknown Sex and Gender Information Value Date Recorded Sex Assigned at Not on file 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
--- OUTSIDE RECORDS SUMMARY | 2025-02-04 01:43 | XMS_ITS | Encounter Summary ---
Author Organization [facility] Address 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
--- OUTSIDE RECORDS SUMMARY | 2025-02-04 01:43 | XMS_ITS | Clinical Summary ---
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 Gender Identity Not on file Sexual Orientation Not on file Last Filed Vital Signs Vital Sign Reading Time Taken Comments Blood Pressure 114/66 06/24/2009 11:44 AM FLUME WORKER Pulse - - Temperature - - Respiratory Rate - - Oxygen Saturation - - Inhaled Oxygen Concentration - - Weight 59 kg (130 lb) 06/24/2009 11:44 AM FLUME WORKER Height 157.5 cm (5' 2) 06/24/2009 11:44 AM FLUME WORKER Body Mass Index 23.78 06/24/2009 11:44 AM FLUME WORKER Plan of Treatment Health Maintenance Due [...] Most Recently Relevant to Health Maintenance Insurance [facility] OPEN ACCESS Advance Directives For more information, please contact: [phone] Documents on File Type Date Recorded 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
--- OUTSIDE RECORDS SUMMARY | 2025-02-04 01:43 | XMS_ITS | Clinical Summary ---
Author Organization [facility] Address [address] [place] [address] Phone Care Team Providers Care Weigher Bulker Name Role Phone Martha Suero MD Unavailable [...] 03/06/2019 Assessment & Plan (05/11/2023 10:01 AM REINFORCER): DEXA requested Continue Prolia Ca and vit D intake discussed Weight bearing exercise Assessment & Plan (04/13/2022 9:49 AM REINFORCER): Continue Prolia Weight bearing exercise Ca and vit D intake discussed and advised Assessment & Plan (03/31/2021 1:56 PM REINFORCER): Continue with Prolia Will check PTH and [...] (09/19/2018): Added automatically from request for surgery [id number] Assessment & Plan (02/09/2021 4:01 PM CDT): -Discussed recommendations for exercise at least 30 minutes moderate to vigorous exercise most days of the week. (minimum 150 minutes weekly) -Discussed MyPlate recommendations and increasing fruits and vegetables. -Cancer screening: recommended colon cancer screening- due 2028; cervical cancer screening- last pap 2018, due 2021 per MULTIMEDIA AUTHOR recommendations; annual mammogram and monthly self breast [...] screening- last pap 2018, due 2021 per MULTIMEDIA AUTHOR recommendations; annual mammogram and monthly self breast [...] months. Assessment & Plan (03/28/2019 8:13 AM REINFORCER): Lipid abnormalities are going to be assessed [...] appointment. Assessment & Plan (03/28/2019 8:13 AM REINFORCER): Hypertension is improving with treatment. Continue current [...] on file Legal Sex Female 1:02 AM REINFORCER Gender Identity Not on file Sexual Orientation [...] Comments Blood Pressure 120/72 06/03/2024 8:48 AM REINFORCER Pulse 68 06/03/2024 8:48 AM REINFORCER Temperature 36.9 C (98.4 F) 02/09/2021 10:52 AM CDT Respiratory Rate 15 06/03/2024 8:48 AM REINFORCER Oxygen Saturation 98% 10/04/2018 9:47 AM CDT Inhaled Oxygen Concentration - - Weight 64 kg (141 lb) 06/03/2024 8:48 AM REINFORCER Height 157.5 cm (5' 2) 06/03/2024 8:48 AM REINFORCER Body Mass Index 25.79 06/03/2024 8:48 AM REINFORCER Plan of Treatment Health Maintenance Due Date [...] MD - 10/04/2018 8:33 AM CDT [facility] Patient Name: Cleo Whitley Procedure [...] by the physician, the nurse and the tank terminal gauger in the endoscopy suite. Mental Status Examination: [...] Metamucilis unsuccessful. Procedure Code(s): --- Professional --- 90364, Colonoscopy, flexible; diagnostic, including collection of specimen(s) by brushing or washing,when performed (separate procedure) Diagnosis Code(s): --- Professional --- Z12.11, Encounter for screening for malignantneoplasm of colon K63.89, Other specified diseases of intestine K57.30, Diverticulosis of large intestine without perforation or abscess without bleeding CPT copyright 2017 [employer]. All rights reserved. The codes documented in this report are preliminary and upon conductor pullman reviewmay be revised to meet current compliance requirements. Dr. Del Kendrick MD Del Kendrick M.D. 10/04/2018 9:40:01 AM This report has been electronically signed by the physician. Number of Addenda: 0 Note Initiated On: 10/04/2018 8:33 AM us Del Kendrick MD ENDOSCOPY PROCEDURES Final R esult * Hepatitis C antibody (08/31/2018 8:49 AM CDT) Hep C Ab Negative Negative [facility] Blood specimen (specimen) 08/31/2018 8:49 AM CDT 08/31/2018 8:49 AM CDT Narrative [facility] CH - 08/31/2018 9:37 AM CDT us Anabel Gonzalez NP LAB MICROBIOLOGY - GENERAL O RDERABLES Final Result [facility] [id number] [address] Department [place] [address] * ThinPrep Pap with HPV (08/06/2018) 08/06/2018 Historical Provider LAB CYTOLOGY ORDERABLES F inal Result from Last 3 Months or Most Recently Relevant to Health Maintenance Insurance [employer] [place] ACCESS OOS ANTH ACCESS ANTHEM ACCESS MEDICARE [employer] OOS Care Teams Weigher Bulker Relationship Specialty Start Date End Date Domingo Calixto MD [address] [place] [address] PCP - General Family Medicine 04/13/22 [place] [id number] [address] [address] Consulting Physician Obstetrics and Gynecology 08/06/18 [place] [id number] [address] [id number] Consulting Physician Obstetrics and Gynecology 08/06/18
--- OUTSIDE RECORDS SUMMARY | 2025-02-04 01:43 | XMS_ITS | Encounter Summary ---
Author Organization [facility] Address [address] [place] [address] Care Team Providers Care Program/Music Director Name Role Phone Unavailable Primary Care Provider Unavailabl e Encounter Details Date Type Department Care Team (Late st Contact Info) Description 12/28/2001 Outpatient Historical [facility] INTELLIGENCE SPECIALIST - [address] [address] Omari Galindo MD [address] [place] [address] [place] [phone] Social History Tobacco Use Types Packs/Day Years Used Date Smoking Tobacco: Never Assessed Comments Unknown Sex and Gender Information Value Date Recorded Sex Assigned at Not on file 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
[2025-02-04] MEDS: ACETAMINOPHEN 500 MG TABLET 1000 MG PO (06:25)
[2025-02-04] MEDS: LACTATED RINGERS 1,000 ML 30 ML IV CONT ×2 (06:30→09:56)
[2025-02-04] MEDS: TRANEXAMIC ACID 1,000MG/ISO100 1,000 MG/100 ML BAG 200 MG IVPB (06:30)
[2025-02-04 06:48] LABS: INR 1.1; Prothrombin Time 13.7 Seconds (11.1-14.7)
[2025-02-04 06:49] LABS: Sodium 135 mmol/L (137-145)
--- NOTE | 2025-02-04 06:54 | WPDANESEPPF ---
Anes - Initial Pre Proc Eval Procedure: Operation Date: 02/04/25 07:30 Proposed Procedures p Right Total Hip Arthroplasty - Emerson Edgar MD Date/Time: 02/04/25 06:54 Surgeon: Emerson Edgar MD Pre Op Diagnosis: rt hip o.a. Patient Data Age: 64 Gender: F Height: 1.57 m Weight: 65.1 kg Last Vital Signs Temp 36.2 C L 02/04/25 06:10 Pulse 85 02/04/25 06:10 Resp 18 02/04/25 06:10 BP 153/87 H 02/04/25 06:10 Pulse Ox 100 02/04/25 06:10 O2 Del Method Room Air 02/04/25 06:10 Allergies Allergy/AdvReac Type Severity Reaction Status Date / Time No Known Allergies Allergy Verified 01/24/25 08:52 Home Medications ?Medication ?Instructions ?Recorded ?Confirmed ?Type denosumab 60 mg/mL subcutaneous 60 mg subcut [id number] 01/21/25 02/04/25 History syringe (Prolia) ibuprofen 200 mg capsule 600 mg PO Q6H PRN pain 01/21/25 01/24/25 History lisinopril 10 mg tablet 10 mg PO DAILY 01/21/25 02/04/25 History magnesium 250 mg tablet 250 mg PO DAILY 01/21/25 02/04/25 History potassium 99 mg tablet 99 mg PO DAILY 01/21/25 02/04/25 History Laboratory Tests 02/04/25 06:31 PT 13.7 Seconds (11.1-14.7) INR 1.1 Sodium 135 L mmol/L (137-145) Blood Type Pending Antibody Screen Pending Patient hx anesthesia problems: none Family hx anesthesia problems: none Results Review: All pre-operative results and documents have been reviewed as part of the pre-operative evaluation. [facility] Past Medical History Medical History HTN (hypertension) Other fatigue Degenerative joint disease (DJD) of hip Family History Family History Unknown Hypertension Social History Social History (Updated 02/04/25 @ 06:55 by Asael Rendon MD) Social History: caffeine use Smoking packs per day: 0.75 Smoking cigarettes per day: 15.0 Years smoked: 30 Smoking pack-years: 22.50 Smoking status: Former smoker Tobacco type: e-cigarettes/vaping Smoking end date: 11/05/18 Additional smoking assessment comments: quit cigarettes 2018 Alcohol intake: current Drinks per week: 8 Substance use: current Substance use type: marijuana Living arrangements: with family Additional living arrangements comments: HUSB Gender identity (if verbalized by the patient): Female Spiritual care concerns: No Anes - Eval Final PreProcedure Day of Procedure 02/04/25 06:54 Patient weight: overweight Heart: regular rate and rhythm Lungs: clear to auscultation Airway: Mallampati scale class II Neurological: alert and oriented Last oral intake: >/= 8 hours ASA classification: II Emergent: no Anesthetic plan: proceed Anesthesia type and monitoring: general ETT and standard monitoring Results Review: All pre-operative results and documents have been reviewed as part of the pre-operative evaluation. Informed Consent: The patient's anesthetic plan and its attendant risks and benefits were discussed with the patient/family/POA. Questions were solicited and answers provided to the satisfaction of the patient/family/POA.
[2025-02-04] MEDS: ceFAZolin 2 GM in SODIUM CHLORIDE 0.9% IV 50 ML 100 ML IVPB ×3 (07:22→22:08)
--- NOTE | 2025-02-04 07:28 | WPDHPUPDATE1 ---
History and Physical Update Update Date/Time: 02/04/25 07:28 History and Physical has been reviewed, including an updated exam of the patient. There are NO changes in the patient's condition. Risks, benefits, and alternatives have been discussed and questions answered. Patient agrees to proceed with procedure.
[2025-02-04] MEDS: SODIUM CHLORIDE 0.9% IV 37.7 ML, MORPHINE SULFATE INJ (*CRX) 2 MG, ROPivacaine HCL 1% 2... INFILTRATE (08:10)
--- NOTE | 2025-02-04 09:44 | W.PM.PROC2 ---
Procedure Note - Detailed Date of Procedure 02/04/25 Pre-op Diagnosis rt hip o.a. Post-op Diagnosis Same Procedure Performed R ADI Surgeon Emerson Edgar MD Anesthesia General Description of Procedure THE PATIENT WAS TAKEN TO THE OPERATING ROOM IN STABLE CONDITION AND WAS PLACED IN THE LATERAL DECUBITUS AND THE RIGHT LOWER EXTREMITY WAS PREPPED AND DRAPED IN THE STERILE FASHION. INCISION WAS MADE IN THE POSTERIOR LATERAL SIDE OF THE HIP, DOWN TO THE FASCIA LAYER. THE FASCIA WAS INCISED. THE HIP WAS EXPOSED. THE SHORT EXTERNAL ROTATORS WERE EXPOSED. THE SCIATIC NERVE WAS IDENTIFIED. INCISION WAS MADE THROUGH THE SHORT EXTERNAL ROTATORS AND THE CAPSULE OF THE HIP JOINT. THE HIP WAS DISLOCATED. AN OSTEOTOMY WAS MADE TO THE FEMORAL NECK ABOUT 1 CM PROXIMAL TO THE LESSER TROCHANTER. THE ACETABULUM WAS EXPOSED. THERE WAS SEVERE DJD SEEN. BEGINNING WITH A 44 REAMER THE ACETABULUM WAS REAMED TO 49 MM. A 49 MM TRIAL WAS PLACED IN 35 DEG OF ABDUCTION AND ANTEVERSION WAS IN ALIGNMENT WITH THE TRANS ACETABULAR LIGAMENT. THE FIT WAS EXCELLENT. THE TRIAL WAS REMOVED. A 50 MM BIOMET G7 COMPONENT WAS THEN TAPPED IN TO PLACE IN 35 DEG OF ABDUCTION AND ANTEVERSION IN ALIGNMENT WITH THE TRANSVERSE ACETABULAR LIGAMENT. THE FIT WAS EXCELLENT. THE ACETABULAR LINER WAS PLACED AND CHECKED FOR STABILITY. NEXT THE FEMUR WAS PREPARED WITH INITIAL CANAL FINDER THEN SEQUENTIAL BROACHING WITH A TAPERLOC HIP SYSTEM, UNTIL A 7 BROACH FIT WELL IN 15 OF ANTEVERSION. A +3 STANDARD OFFSET NECK WITH 36 MM HEAD TRIAL WAS PLACED. THE SHUCK TEST WAS EXCELLENT AND THE STABILITY IN FLEXION AND ROTATION WAS EXCELLENT. LEG LENGTHS WERE GROSSLY EQUAL. TRIALS WERE REMOVED. A BIOMET TAPERLOC 7 STEM WAS PLACED WITH A STANDARD OFFSET NECK. THE FIT WAS EXCELLENT IN 15 DEG OF ANTEVERSION. A +3 CERAMIC 36 MM FEMORAL HEAD WAS PLACED. THE HIP WAS TRIALED AND THE STABILITY WAS EXCELLENT WERE THE LEG LENGTHS AND THE SHUCK TEST. THE WOUND WAS IRRIGATED WITH STERILE BETADINE AND WATER FOR 3 MIN. THEN WASHED AGAIN. THE SCIATIC NERVE WAS IDENTIFIED AGAIN. THE CAPSULE AND THE EXTERNAL ROTATORS WERE APPROXIMATED WITH NUMBER 1 VICRYL. THE FASCIA WITH No 2 QUIL AND THE SUB CUTANEOUS LAYER WITH 2-0 ABSORBABLE SUTURE AND A RUNNING 3-0 SUBCUTICULAR STITCH FOR THE SKIN. DERMABOND WAS PLACED AND STERILE DRESSING WAS APPLIED. PATIENT WAS PLACED BACK ON TO THE SUPINE POSITION AND WAS EXTUBATED Estimated Blood Loss 300 Complications No immediate complications Condition Stable Disposition PACU
[2025-02-04] MEDS: fentaNYL CITRATE INJ (*CRX) 100 MCG/2 ML VIAL 25 MCG IV PUSH ×6 (10:06→11:48)
--- NOTE | 2025-02-04 12:16 | ADMGEN ---
This patient, Cleo Garnett, was admitted to 3 [facility] Surg Room 311-01. Patient/family oriented to hospital policies and general routines including ID bracelet, bed and alarms, visiting hours, pain management, procedures, bathroom and other care routines, personal items, smoking policy, room service/diet, and visiting hours. Information on how to activate the Rapid Response Team has been discussed. Patient/Family are encouraged to report perceived risks to care and to ask questions if they do not understand what they are told or what they should do.
[2025-02-04] MEDS: KETOROLAC 15 MG/ML VIAL (*BKC) IV PUSH ×3 (13:06→23:59)
[2025-02-04] MEDS: SODIUM CHLORIDE 0.9% IV 1,000 ML 125 ML IV CONT ×2 (13:07→22:05)
[2025-02-04] MEDS: ONDANSETRON INJ 4 MG/2 ML VIAL IV PUSH ×2 (15:02→19:31)
[2025-02-04] MEDS: SENNA/DOCUSATE SODIUM TABLET 2 TAB PO (17:32)
[2025-02-04] MEDS: oxyCODONE/ACETAMINOPHEN (*CRX) 5-325 MG TABLET 1 TABLET PO (19:28)
[2025-02-04] MEDS: ASPIRIN 325 MG ENTERIC TABLET PO (19:28)
[2025-02-04] MEDS: FAMOTIDINE 20 MG TABLET PO (19:30)
[2025-02-04] MEDS: diazePAM (*CRX) 5 MG TABLET PO (22:07)
[2025-02-05 01:46] VITALS: BP 110/52; PULSE 80; RESP 18; TEMP 36.6; O2SAT 100
[2025-02-05 05:46] VITALS: BP 123/52; PULSE 86; RESP 18; TEMP 36.2; O2SAT 98
[2025-02-05 06:00] VITALS: BP 108/90; PULSE 86; RESP 18; TEMP 36.2; O2SAT 99
[2025-02-05 06:07] LABS: Hematocrit 25.2 % (37.0-47.0); Hemoglobin 8.4 g/dL (12.0-15.0); Immature Granulocyte Percent A 0.7 % (0-0.5); Lymphocytes Absolute Auto 1.69 K/mm3 (0.9-3.2); Mean Corpuscular HGB Conc 33.3 g/dl (32-36); Mean Corpuscular Hemoglobin 33.3 pg (26-34); Mean Corpuscular Volume 100.0 fl (80-100); Nucleated Red Blood Cells Absolute Auto 0.000 K/mm3 (0.0-0.012); Nucleated Red Blood Cells Perc 0.0 % (0.0-0.2); Platelet Count Result 240 k/mm3 (150-375); Red Blood Count 2.52 M/mm3 (4.2-5.4); White Blood Count 9.2 K/mm3 (4.5-10.0)
[2025-02-05] MEDS: KETOROLAC 15 MG/ML VIAL (*BKC) IV PUSH ×2 (06:19→12:21)
[2025-02-05] MEDS: SODIUM CHLORIDE 0.9% IV 1,000 ML 125 ML IV CONT (06:19)
[2025-02-05] MEDS: ceFAZolin 2 GM in SODIUM CHLORIDE 0.9% IV 50 ML 100 ML IVPB (06:20)
[2025-02-05 06:33] LABS: Anion Gap 4 mmol/L (4-12); Blood Urea Nitrogen 10 mg/dL (7-17); Calcium 7.7 mg/dL (8.4-10.2); Carbon Dioxide 25 mmol/L (22-30); Chloride 105 mmol/L (98-107); Estimated CRCL calculation 51 ml/min; Estimated Glomerular Filt Rate > 60; Glucose 102 mg/dL (65-110); Potassium 3.7 mmol/L (3.4-5.0); Sodium 134 mmol/L (137-145)
[2025-02-05] MEDS: FAMOTIDINE 20 MG TABLET PO (08:26)
[2025-02-05] MEDS: ASPIRIN 325 MG ENTERIC TABLET PO (08:26)
[2025-02-05] MEDS: SENNA/DOCUSATE SODIUM TABLET 2 TAB PO (08:26)
[2025-02-05] MEDS: oxyCODONE/ACETAMINOPHEN (*CRX) 5-325 MG TABLET 1 TABLET PO (08:31)
--- NOTE | 2025-02-05 13:24 | PM.PNORT ---
Progress Note: A&P Assessment and Plan (1) S/P total hip arthroplasty: Code(s): Z96.649 - Presence of unspecified artificial hip joint Status: Acute Assessment and Plan: POD 1 DOING WELL. OK TO DC HOME F/U IN 3 WEEKS Subjective Subjective Date/Time Seen: 02/05/25 13:24 Interval history: POD 1 DOING WELL. NO CALF PAIN. GOOD PROGRESS WITH PT Exam Extrem: Other: VSS AFEBRILE DRESSING DRY NV INTACT NEG HOMANS SIGN CALF AND THIGH SOFT NON TENDER Objective Data Vital Signs Vital Signs: Vital Signs - 24 hr 02/04/25 13:56 02/04/25 13:56 02/04/25 15:30 Temperature 36.3 C L 36.3 C L Pulse Rate 87 87 Respiratory Rate 18 18 Blood Pressure 132/67 132/67 Pulse Oximetry 100 100 Oxygen Delivery Room Air 02/04/25 16:30 02/04/25 17:46 02/04/25 20:00 Temperature 36.4 C Pulse Rate 87 80 80 Respiratory Rate 18 16 16 Blood Pressure 126/65 Pulse Oximetry 100 100 100 Oxygen Delivery Room Air Room Air 02/04/25 21:46 02/05/25 01:46 02/05/25 05:46 Temperature 36.4 C L 36.6 C 36.2 C L Pulse Rate 79 80 86 Respiratory Rate 18 18 18 Blood Pressure 127/58 L 110/52 L 123/52 L Pulse Oximetry 100 100 98 Oxygen Delivery 02/05/25 06:00 02/05/25 07:48 02/05/25 09:35 Temperature 36.2 C L Pulse Rate 86 Respiratory Rate 18 Blood Pressure 108/90 Pulse Oximetry 99 Oxygen Delivery Room Air Room Air Intake/Output Intake/Output: Intake & Output 02/02/25 02/03/25 02/04/25 02/05/25 23:59 23:59 23:59 23:59 Intake Total 2150 1620 Output Total 500 400 Balance 1650 1220 Meds/Results Medications: Active Medications Generic Name Dose Route Start Last Admin Trade Name Freq PRN Reason Stop Dose Admin Acetaminophen 500 mg 02/04/25 12:01 Acetaminophen 500 Mg Tablet PO Q6H PRN Pain Rated 1-3 Aspirin 325 mg 02/04/25 21:00 02/05/25 08:26 Aspirin 325 Mg Enteric Tablet PO 325 mg Q12HR SAMREEN Administration Diazepam 5 mg 02/04/25 12:01 02/04/25 22:07 Diazepam (*Crx) 5 Mg Tablet PO 5 mg Q6H PRN Administration Anxiety/Muscle Spasm Diphenhydramine HCl 25 mg 02/04/25 12:01 Diphenhydramine Hcl Inj 50 Mg/Ml Vial IV PUSH Q6H PRN Itching Famotidine 20 mg 02/04/25 21:00 02/05/25 08:26 Famotidine 20 Mg Tablet PO 20 mg Q12HR SAMREEN Administration Hydromorphone HCl 1 mg 02/04/25 12:01 Hydromorphone Hcl Inj (*Crx) 1 Mg/Ml Syr IV PUSH Q2H PRN Breakthrough Pain Rated 7-10 or NPO Hydromorphone HCl 0.5 mg 02/04/25 12:01 Hydromorphone Hcl Inj (*Crx) 1 Mg/Ml Syr IV PUSH Q2H PRN Breakthrough Pain Rated 4-6 or NPO Sodium Chloride 1,000 mls @ 125 mls/hr 02/04/25 12:01 02/05/25 06:19 Normal Saline Iv IV CONT 125 mls/hr .Q8H SAMREEN Administration Ibuprofen 800 mg in 200 mls @ 400 mls/hr 02/04/25 12:01 Caldolor 800 Mg/200 Ml IVPB Q6H PRN Breakthrough Pain Rated 1-3 or NPO Lisinopril 10 mg 02/05/25 09:00 02/05/25 08:25 Lisinopril 10 Mg Tablet PO 10 mg DAILY SAMREEN Administration Naloxone HCl 0.1 mg 02/04/25 12:01 Naloxone Hcl 0.4 Mg/Ml Vial IV PUSH Q2M PRN Opiate Reversal Ondansetron HCl 4 mg 02/04/25 12:01 02/04/25 19:31 Ondansetron Inj 4 Mg/2 Ml Vial IV PUSH 4 mg Q4H PRN Administration Nausea And Vomiting Oxycodone/Acetaminophen 1 tablet 02/04/25 12:01 02/05/25 08:31 Oxycodone/Acetaminophen (*Crx) 5-325 Mg Tablet PO 1 tablet Q4H PRN Administration Pain Rated 4-6 Oxycodone/Acetaminophen 1 tab 02/04/25 12:01 Oxycodone/Acetaminophen (*Crx) 10-325 Mg Tablet PO Q6H PRN Pain Rated 7-10 Polyethylene Glycol 17 gm 02/05/25 09:00 02/05/25 08:26 Polyethylene Glycol 3350 17 Gm Powd.Pack PO 17 gm QAM SAMREEN Administration Senna/Docusate Sodium 2 tab 02/04/25 17:00 02/05/25 08:26 Senna/Docusate Sodium Tablet PO 2 tab BID SAMREEN Administration Radiology Results: ITS Impressions Hip X-Ray 02/04/25 10:14 Impression: No acute fracture or malalignment. Labs Labs: Laboratory Results - last 24 hr 02/05/25 05:26 WBC 9.2 RBC 2.52 L Hgb 8.4 L D Hct 25.2 L MCV 100.0 MCH 33.3 MCHC 33.3 RDW 12.5 Plt Count 240 MPV 9.2 Immature Gran % (Auto) 0.7 H Neut % (Auto) 69.6 Lymph % (Auto) 18.5 [place] % (Auto) 11.0 H Eos % (Auto) 0.0 Baso % (Auto) 0.2 Lymph # (Auto) 1.69 [place] # (Auto) 1.0 H Eos # (Auto) 0.0 Baso # (Auto) 0.0 Abs Immat Gran (auto) 0.06 H Absolute Neuts (auto) 6.4 Absolute Nucleated RBC 0.000 Nucleated RBC % 0.0 Sodium 134 L Potassium 3.7 Chloride 105 Carbon Dioxide 25 Anion Gap 4 BUN 10 D Creatinine 0.74 Estim Creat Clear Calc 51 Estimated GFR > 60 Glucose 102 Calcium 7.7 L
[2025-02-05 13:46] VITALS: BP 117/50; PULSE 84; RESP 18; TEMP 36.8; O2SAT 98
== END 2025-02-05 14:50 | disposition home health service (06) ==
LOC: ANHSURGERY 06:35 → ANH3MEDSUR 14:42
PROVIDERS: PCP Family Medicine; Visit Provider Orthopaedic Surgery
PROC: (CPT 27130; principal; 2025-02-04 07:30)
DX: M16.11 Unilateral primary osteoarthritis, right hip (principal); I10 Essential (primary) hypertension; R53.83 Other fatigue; F12.90 Cannabis use, unspecified, uncomplicated; Z79.1 Long term (current) use of non-steroidal anti-inflammatories (NSAID); Z87.891 Personal history of nicotine dependence
CPT/HCPCS: 27130; 36415; 73501; 80048; 84295; 85025; 85610; 86850; 86900; 86901; 97110; 97161; 97166; 97530; 97535; J0690; A9270; C1713; C1776; J0166; J1100; J1171; J1885; J2003; J2250; J2270; J2405; J2704; J2795; J3010; J7030; J7120

== ENCOUNTER 2025-02-24 10:57 | Outpatient (CLI) | payer BC, SELFPAY ==
--- NOTE | ~2025-02-24 | XR_ITS ---
EXAMINATION: XR hip RT 2V w AP pelvis, 02/24/2025 11:05 CDT HISTORY: M25.551 - Pain in right hip COMPARISON: No comparisons available. Findings: No acute fracture or malalignment. Arthroplasty intact Soft tissues unremarkable. Impression: No acute fracture or malalignment. Reviewed, dictated and finalized at location P. Impression: No acute fracture or malalignment.
== END 2025-02-24 10:58 | disposition home or self-care (01) ==
LOC: CHSIMG 10:58
PROVIDERS: PCP Family Medicine; Visit Provider Orthopaedic Surgery
DX: M25.551 Pain in right hip (principal)
CPT/HCPCS: 73502

== ENCOUNTER 2025-03-04 07:58 | Outpatient (RCR) | payer BC, SELFPAY ==
--- NOTE | 2025-03-04 08:50 | PTOPEVAL1 ---
Assessment and note entered by Kayley Lopez DPT Evaluation Information Assessment Status Evaluation Diagnosis R hip pain ICD-10 Condition Codes (PT) Pain in right hip M25.551 Other ICD-10 Condition Codes ( Z96.649 PT) Onset 02/04/25 Subjective Information Patient reports that she had her hip replaced 4 weeks ago. She reports that she had ~7 sessions of home health PT. She is using a STC now and was using a walker following PT. She reports she did not use an AD prior to surgery. Patient is retired now. 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 She reports that pain is usually always presents and is slow with all activities. She reports she has had difficulty sleeping but that is also improving . Her goal is to return to playing golf. Reported Pain Level Pain Score 2: Self Report Assessment PT Clinical Summary Mrs. Garnett is a 64 year old female who presents to PT with R hip pain s/p R ADI. She demonstrates decreased R LE strength, gait mechanics and flexibility impairing her ability to complete house hold tasks and ambulate prolonged distances without AD. She would benefit from skilled PT to address impairments and return to PLOF. Plan of Care Interventions Electrical Stimulation,Gait Training PT Services Indicated Yes Treatment Frequency and 2x weekly for 10 visits Duration These treatments will address the objective and functional deficits as defined above. The patient will be advanced safely and appropriately in order for the patient to progress towards his/her prior level of function. Additional exercises will be introduced and as well as a comprehensive home exercise program upon discharge, if needed, ?to ensure carryover of functional gains achieved in the clinic. This treatment plan has been reviewed and agreement upon by the patient.
--- NOTE | 2025-05-16 14:16 | PCPTNOTE ---
pt attends 7 visit of skilled PT following a right hip replacement. pt calls on 03/31/25 reporting she is doing well and wants to be discharged from therapy.
== END 2025-03-27 20:00 | disposition home or self-care (01) ==
LOC: CHSPT 07:58
PROVIDERS: Visit Provider Orthopaedic Surgery
DX: Z96.649 Presence of unspecified artificial hip joint (principal); Z47.1 Aftercare following joint replacement surgery; M25.551 Pain in right hip
CPT/HCPCS: 97110; 97112; 97161; 97530

== ENCOUNTER 2025-03-24 07:30 | Outpatient (CLI) | payer BC, SELFPAY ==
[2025-03-24 07:41] LABS: Add Urine Microscopic? YES; Appearance Urine Clear (Clear); Glucose Urine UA Negative (Negative); Leukocyte Esterase Ur Trace (Negative); Nitrate Urine Negative (Negative); Specific Grav Ur 1.015 (1.010-1.020)
[2025-03-24 07:42] LABS: Hematocrit 33.0 % (35.0-42.0); Hemoglobin 11.1 g/dL (11.7-13.8); Immature Granulocyte Percent A 0.6 % (0.0-0.0); Lymphocytes Absolute Auto 1.82 K/mm3 (1.10-4.50); Mean Corpuscular HGB Conc 33.6 g/dL (32-36); Mean Corpuscular Hemoglobin 32.5 pg (27.0-31.0); Mean Corpuscular Volume 96.5 fL (78.0-102.0); Nucleated Red Blood Cells Absolute Auto 0.00 K/mm3 (0.00-0.00); Nucleated Red Blood Cells Perc 0.0 % (0-0.0); Platelet Count Result 370 K/mm3 (150-420); Red Blood Count 3.42 M/mm3 (4.20-5.40); White Blood Count 5.4 K/mm3 (4.8-10.8)
[2025-03-24 08:02] LABS: MALB Creatinine Ratio 10.6 mg/g (0-30)
[2025-03-24 08:07] LABS: Alanine Aminotransferase 22 U/L (6-35); Albumin Level 4.7 g/dL (3.5-5.1); Alkaline Phosphatase 72 U/L (38-126); Anion Gap 9 mmol/L (4-12); Aspartate Amino Transferase 27 U/L (14-36); Blood Urea Nitrogen 10 mg/dL (7-17); Calcium 9.7 mg/dL (8.4-10.2); Carbon Dioxide 29 mmol/L (22-30); Chloride 95 mmol/L (98-107); Cholesterol 269 mg/dL (0-200); Estimated Glomerular Filt Rate > 60; Glucose 99 mg/dL (65-110); Osmolality Calculated 275 mOsm/kg (285-295); Potassium 4.8 mmol/L (3.4-5.0); Sodium 133 mmol/L (137-145); Total Protein 7.5 g/dL (6.3-8.2); Triglycerides 74 mg/dL (<150)
[2025-03-24 08:13] LABS: HDL Direct > 110 mg/dL
[2025-03-24 08:38] LABS: Thyroid Stimulating Hormone 1.480 uIU/mL (0.465-4.680)
[2025-03-25 16:18] LABS: Bilirubin,Total 0.5 mg/dL (0.2-1.3)
== END 2025-03-24 07:31 | disposition home or self-care (01) ==
LOC: CHSLAB 07:32
PROVIDERS: PCP Family Medicine; Visit Provider Family Medicine
DX: E80.7 Disorder of bilirubin metabolism, unspecified (principal); D64.9 Anemia, unspecified; E87.1 Hypo-osmolality and hyponatremia; I10 Essential (primary) hypertension
CPT/HCPCS: 36415; 80053; 80061; 81001; 82043; 82248; 84443; 85025